=== PATIENT | male | born 1950 | race Caucasian/White ===

== ENCOUNTER 2023-04-03 18:40 | Observation (INO) | payer OTHER, BC ==
[2023-04-03] MEDS ORDERED: LORAZEPAM 1 MG TABLET ONE (19:41)
[2023-04-03] MEDS ORDERED: ASPIRIN 325 MG TAB ONE (19:41)
[2023-04-03 19:46] LABS: Absolute Lymphocytes (CBC) 1.2 K/uL (0.7-4.9); Hematocrit 46.9 % (39.6-49.0); Lymphocytes % 11.3 % (15.3-44.8); MCV 96.6 fL (80-100); MPV 9.8 fL (7.6-11.3); Platelets 170 thou/uL (152-406); RBC Red Blood Cell Count 4.85 M/uL (4.33-5.43)
--- NOTE | 2023-04-03 19:55 | RAD REPORT ---
EXAM DESCRIPTION: Dar Single View04/03/2023 7:31 pm CLINICAL HISTORY: CHEST PAIN COMPARISON: No comparisons TECHNIQUE: Portable AP view of the chest. FINDINGS: Right lung is clear. Retrocardiac airspace opacity, may relate to atelectasis or early pne umonia. No pneumothorax or effusion. The cardiomediastinal contours are unremarkable. IMPRESSION: Retrocardiac airspace opacification, may relate to atelectasis or pneumonia.
[2023-04-03 20:11] LABS: Albumin 4.2 g/dL (3.4-5.0); Bilirubin Direct 0.4 mg/dL (0-0.2); Bilirubin Indirect, Calculated 2.5 mg/dL (0.2-0.8); Bilirubin Total 2.9 mg/dL (0.2-1.0); Magnesium 2.5 mg/dL (1.6-2.4); Potassium 4.4 mEq/L (3.5-5.1); Protein, Total 8.1 g/dL (6.4-8.2); Troponin High Sensitivity 7.6 pg/mL (<58.9)
--- NOTE | 2023-04-03 21:02 | EDPHYS ---
Physician Documentation [facility] Name: Migue Jacob Age: 72 yrs Sex: Male : 1950 Arrival Date: 04/03/2023 Time: 18:40 Bed 15 Private MD: ED Physician Dario Lovell HPI: 04/03 19:55 This 72 yrs old Male presents to ER via Ambulatory with complaints of Chest Pain. rt 19:55 Patient presents to the ED with intermittent chest pain, shortness of breath starting rt yesterday. It is not exertional. Patient has no chest pain currently. He states that his anxiety has worsened. He denies other acute complaints at this time, symptoms are moderate severity, no other aggravating alleviating factors.. Historical: - Allergies: 18:45 No Known Allergies; ap3 - PMHx: 18:45 Hypertensive disorder; Parkinson's disease; ap3 - Immunization history:: Client reports having NOT received the Covid vaccine. - Social history:: Smoking status: Patient denies any tobacco usage or history of. - Family history:: not pertinent. ROS: 19:55 Constitutional: Negative for fever, chills, and weight loss, Abdomen/GI: Negative for rt abdominal pain, nausea, vomiting, diarrhea, and constipation, MS/Extremity: Negative for injury and deformity, Skin: Negative for injury, rash, and discoloration, Neuro: Negative for headache, weakness, numbness, tingling, and seizure, 19:55 Cardiovascular: Positive for chest pain, Negative for edema, 19:55 Respiratory: Positive for shortness of breath, Negative for cough, 19:55 Psych: Positive for anxiety, Negative for depression, Exam: 19:55 Constitutional: This is a well developed, well nourished patient who is awake, alert, rt and in no acute distress. Head/Face: Normocephalic, atraumatic. Chest/axilla: Normal chest wall appearance and motion. Nontender with no deformity. No lesions are appreciated. Cardiovascular: Regular rate and rhythm with a normal S1 and S2. No gallops, murmurs, or rubs. Normal PMI, no JVD. No pulse deficits. Respiratory: Lungs have equal breath sounds bilaterally, clear to auscultation and percussion. No rales, rhonchi or wheezes noted. No increased work of breathing, no retractions or nasal flaring. Abdomen/GI: Soft, non-tender, with normal bowel sounds. No distension or tympany. No guarding or rebound. No evidence of tenderness throughout. Skin: Warm, dry with normal turgor. Normal color with no rashes, no lesions, and no evidence of cellulitis. MS/ Extremity: Pulses equal, no cyanosis. Neurovascular intact. Full, normal range of motion. Neuro: Awake and alert, GCS 15, oriented to person, place, time, and situation. Cranial nerves II-XII grossly intact. Motor strength 5/5 in all extremities. Sensory grossly intact. Cerebellar exam normal. Normal gait. 19:55 ECG was reviewed by the Attending Physician. Vital Signs: 18:44 BP 148 / 69; Pulse 62; Resp 17; Temp 97.6; Pulse Ox 97% ; Weight 86.18 kg; Height 5 ft. ap3 8 in. ; Pain 7/10; 20:21 BP 137 / 78; Pulse 70; Resp 18; Pulse Ox 97% ; Pain 10/10; la4 18:44 Body Mass Index 28.89 (86.18 kg, 172.72 cm) ap3 18:44 Pain Scale: Adult ap3 20:21 Pain Scale: Adult la4 20:21 states that his whole body achees because he needs sleep. la4 [place] Coma Score: 20:21 Eye Response: spontaneous(4). Motor Response: obeys commands(6). Verbal Response: la4 oriented(5). Total: 15. MDM: 18:56 Patient medically screened. rt 20:12 Data reviewed: vital signs. ED course: Patient arrives today due to concern for chest ec2 pain, signout to me by previous physician. Lab work is remarkable for reassuring metabolic profile with renal dysfunction noted, troponin is within normal ranges, BNP is minimally elevated, CBC is reassuring and chest x-ray shows no acute intrathoracic process. Does comment on possible retrocardiac airspace opacification, patient without any respiratory symptoms, low suspicion for pneumonia.. 21:00 ED course: Ultimately patient is a medium risk chest pain also complaining of symptoms, ec2 will admit for continued cardiac evaluation. Discussed case with hospitalist, pending admission.. 04/03 18:54 Order name: Basic Metabolic Panel; Complete Time: 20:12 rt 04/03 18:54 Order name: CBC with Diff; Complete Time: 19:54 rt 04/03 18:54 Order name: LFT's; Complete Time: 20:12 rt 04/03 18:54 Order name: Magnesium; Complete Time: 20:12 rt 04/03 18:54 Order name: NT PRO-BNP; Complete Time: 20:12 rt 04/03 18:54 Order name: Troponin HS; Complete Time: 20:12 rt 04/03 21:24 Order name: Urinalysis w/ reflexes EDMS 04/03 21:24 Order name: Troponin High Sensitivity EDMS 04/03 21:24 Order name: Troponin High Sensitivity EDMS 04/03 21:24 Order name: Troponin High Sensitivity EDMS 04/03 21:24 Order name: Troponin High Sensitivity EDMS 04/03 18:54 Order name: XRAY Chest (1 view); Complete Time: 19:57 rt 04/03 18:54 Order name: EKG; Complete Time: 18:55 rt 04/03 18:54 Order name: EKG - Nurse/Tech; Complete Time: 18:56 rt 04/03 18:54 Order name: IV Saline Lock; Complete Time: 19:40 rt 04/03 18:54 Order name: Labs collected and sent; Complete Time: 19:50 rt 04/03 18:54 Order name: O2 Per Protocol; Complete Time: 19:50 rt 04/03 18:54 Order name: O2 Sat Monitoring; Complete Time: 19:50 rt EC:55 Rate is 58 beats/min. Rhythm is regular, Sinus bradycardia with No ectopy. QRS [place] is rt Normal. [place] interval is normal. QRS interval is normal. QT interval is normal. No Q waves. T waves are Normal. No ST changes noted. Interpreted by me. Administered Medications: 19:43 Drug: LORazepam PO 1 mg PO once Route: PO; rv 21:42 Follow up: Response: No adverse reaction; No change in condition la4 19:43 Drug: Aspirin PO 325 mg PO once Route: PO; rv 21:42 Follow up: Response: No adverse reaction; No change in condition la4 Disposition Summary: 04/03/23 21:01 Hospitalization Ordered Notes: Hospitalization Status: Inpatient Admission ec2 Provider: Fab Espinoza ec2 Location: Telemetry/MedSurg (Inpatient) ec2 Condition: Stable ec2 Problem: new ec2 Symptoms: are unchanged ec2 Bed/Room Type: Standard ec2 Room Assignment: 207(04/03/23 21:31) [id number] Diagnosis - Chest pain, unspecified ec2 Forms: - Medication Reconciliation Form ec2 - SBAR form ec2 - Leadership Thank You Letter ec2 Signatures: Dispatcher [employer] Phuong Holt RN RN ap3 Gerardo Montes RN RN rv [place], Ryan, MD MD rt Corral, Edwin, MD MD [facility] [place] [id number] Jocelynn Prieto RN la4 Corrections: (The following items were deleted from the chart) 21:31 21:01 ec2 [id number]
--- NOTE | 2023-04-03 21:02 | ER ---
Nurse's Notes [facility] Name: Migue Jacob Age: 72 yrs Sex: Male : 1950 Arrival Date: 04/03/2023 Time: 18:40 Bed 15 Private MD: Diagnosis: Chest pain, unspecified Presentation: 04/03 18:44 Chief complaint: Patient states: he has been having chest pain, shortness of breath, ap3 anxiety and moving slower than normal since yesterday 04/02/2023. Coronavirus screen: At this time, the client does not indicate any symptoms associated with coronavirus-19. Ebola Screen: No symptoms or risks identified at this time. Initial Sepsis Screen: Does the patient meet any 2 criteria? No. Patient's initial sepsis screen is negative. Does the patient have a suspected source of infection? No. Patient's initial sepsis screen is negative. Risk Assessment: Do you want to hurt yourself or someone else? Patient reports no desire to harm self or others. Onset of symptoms was April 02, 2023. 18:44 Method Of Arrival: Ambulatory ap3 18:44 Acuity: [place] 2 ap3 Triage Assessment: 18:47 General: Appears in no apparent distress. Behavior is calm. Pain: Complains of pain in ap3 chest Pain currently is 7 out of 10 on a pain scale. Pain began gradually, 1 day ago. Neuro: Level of Consciousness is awake, alert, obeys commands, Oriented to person, place, time, situation. Cardiovascular: Reports chest pain, shortness of breath, Patient's skin is warm and dry. Respiratory: Airway is patent Respiratory effort is even, unlabored, Respiratory pattern is regular, symmetrical. Historical: - Allergies: 18:45 No Known Allergies; ap3 - PMHx: 18:45 Hypertensive disorder; Parkinson's disease; ap3 - Immunization history:: Client reports having NOT received the Covid vaccine. - Social history:: Smoking status: Patient denies any tobacco usage or history of. - Family history:: not pertinent. Screenin:47 Abuse screen: Denies threats or abuse. Nutritional screening: No deficits noted. ap3 Tuberculosis screening: No symptoms or risk factors identified. 20:21 [facility] ED Fall Risk Assessment (Adult) History of falling in the last 3 months, la4 including since admission No falls in past 3 months (0 pts) Confusion or Disorientation No (0 pts) Intoxicated or Sedated No (0 pts) Impaired Gait Yes (1 pt) Mobility Assist Device Used Yes (1 pt) Altered Elimination No (0 pt) Score/Fall Risk Level 0 - 2 = Low Risk Oriented to surroundings, Maintained a safe environment, Educated pt \T\ family on fall prevention, incl call for assistance when getting out of bed, Provided non-skid footwear, Hourly rounding (assess needs \T\ fall precautionary measures) done, Used ambulatory aids as needed (educated on \T\ assisted with). Assessment: 20:17 Reassessment: Pt noted in room. Pt reports that his anxiety is keeping him from la4 sleeping and that he has not slept in the past 3 days. Pt has HX of parkinsons and restless legs and keeps going from seated position to standing position. Dr. Lovell notified. Previously medicated with ativan 1mg po prior to my assumption of care. Neuro: No deficits noted. Shen Agitation-Sedation Scale (RASS): +1 Restless Level of Consciousness is awake, alert, obeys commands, Oriented to person, place, time, situation, Appropriate for age Data Sme are equal bilaterally Moves all extremities. Full function Gait is Speech is normal, Facial symmetry appears normal, Pupils are PERRLA, Intact. Neuro: Reports Restlessness. Cardiovascular: No deficits noted. Heart tones S1 S2 Capillary refill < 3 seconds is sluggish Patient's skin is warm and dry. Chest pain is denied. Respiratory: No deficits noted. Airway is patent Respiratory effort is even, unlabored, Respiratory pattern is regular, symmetrical. GI: No deficits noted. No signs and/or symptoms were reported involving the gastrointestinal system. : No deficits noted. No signs and/or symptoms were reported regarding the genitourinary system. Derm: No deficits noted. No signs and/or symptoms reported regarding the dermatologic system. 21:35 Reassessment: Attempted to call report at this time to floor. No nurse assigned, will la4 call back in 10 minutes. Family notified of room number. pt has taken all PM meds from home to include carbidopa 25-100mg \T\ tabs, atorvastatin. pramipexole, trazodone 50mg taken. Vital Signs: 18:44 BP 148 / 69; Pulse 62; Resp 17; Temp 97.6; Pulse Ox 97% ; Weight 86.18 kg; Height 5 ft. ap3 8 in. ; Pain 7/10; 20:21 BP 137 / 78; Pulse 70; Resp 18; Pulse Ox 97% ; Pain 10/10; la4 18:44 Body Mass Index 28.89 (86.18 kg, 172.72 cm) ap3 18:44 Pain Scale: Adult ap3 20:21 Pain Scale: Adult la4 20:21 states that his whole body achees because he needs sleep. la4 [place] Coma Score: 20:21 Eye Response: spontaneous(4). Motor Response: obeys commands(6). Verbal Response: la4 oriented(5). Total: 15. ED Course: 18:44 Patient arrived in ED. ap3 18:45 Triage completed. ap3 18:47 Arm band placed on right wrist. ap3 18:49 Mak Oropeza MD is Attending Physician. rt 18:56 EKG done, by ED staff, reviewed by Mak Oropeza MD. ap3 19:33 XRAY Chest (1 view) In Process Unspecified. EDMS 19:39 Inserted saline lock: 20 gauge in right antecubital area, using aseptic technique. rv Blood collected. 20:02 Jocelynn Prieto, RN is Primary Nurse. la4 20:07 Attending Physician role handed off by Mak Oropeza MD ec2 20:07 Dario Lovell MD is Attending Physician. ec2 20:21 Patient has correct armband on for positive identification. Bed in low position. Call la4 light in reach. Adult w/ patient. Provided Education on: Plan of care. 20:21 No provider procedures requiring assistance completed. la4 21:00 Fab Espinoza MD is Hospitalizing Provider. ec2 21:42 Patient admitted, IV remains in place. la4 Administered Medications: 19:43 Drug: LORazepam PO 1 mg PO once Route: PO; rv 21:42 Follow up: Response: No adverse reaction; No change in condition la4 19:43 Drug: Aspirin PO 325 mg PO once Route: PO; rv 21:42 Follow up: Response: No adverse reaction; No change in condition la4 Medication: 20:21 VIS not applicable for this client. la4 Outcome: 21:01 Decision to Hospitalize by Provider. ec2 21:40 Admitted to Med/surg via stretcher, room 207, Report called to Mary Kay ramirez 21:40 Condition: stable 21:40 Instructed on the need for admit, Demonstrated understanding of instructions, room number 22:02 Patient left the ED. ashley Signatures: Dispatcher [employer] EDPhuong Fajardo RN RN ap3 Gerardo Montes RN CADEN rv Mak Oropeza MD MD rt Daroi Lovell MD MD ec2 Jocelynn Prieto, RN RN la4
[2023-04-03] MEDS ORDERED: ACETAMINOPHEN 325 MG TABLET PO PRN (21:20)
[2023-04-03] MEDS ORDERED: ALPRAZOLAM 0.25 MG TABLET PO PRN (21:20)
[2023-04-03] MEDS ORDERED: ONDANSETRON 4 MG/2 ML VIAL IV PRN (21:20)
--- NOTE | 2023-04-03 21:25 | P.HP ---
Certification for Inpatient Patient admitted to: Observation With expected LOS: <2 Midnights Practitioner: I am a practitioner with admitting privileges, knowledge of patient current condition, hospital course, and medical plan of care. Services: Services provided to patient in accordance with Admission requirements found in Title 42 Section 412.3 of the Code of Federal Regulations Patient History Date of Service: 04/04/23 Reason for admission: Chest pain. History of Present Illness: 72-year-old male patient with medical history significant for hyperlipidemia, Parkinson's disease and issues with anxiety was evaluated for episode of chest discomfort. Patient presented to the ED with chest discomfort and reported a lot of anxiety episode. As per family and friend at bedside patient has had significant mood swings and because of concerns was brought to the ED. In the ED initial lab revealed no acute abnormality and EKG was not concerning. Because of his presentation and other comorbidities she was admitted for chest pain workup. He denied overt episode of fever, chills, cough, nausea, vomiting. Allergies Unable to Assess Allergy (Unverified 04/03/23 21:44) Home Medications: 5-Hydroxytryptophan (5-Htp) [5-Htp] 100 mg PO DAILY 04/04/23 Atorvastatin Calcium [Lipitor*] 10 mg PO BEDTIME 04/04/23 Carbidopa/Levodopa 25-100 [Sinemet 25-100*] 2 tab PO TID 04/04/23 Escitalopram Oxalate 10 mg PO DAILY 04/04/23 [place] [facility]-3 Fatty Acids [[place]-3] 1 cap PO DAILY 04/04/23 Pramipexole Di-HCl [Pramipexole Dihydrochloride] 1.5 mg PO BEDTIME 04/04/23 Trazodone [Desyrel*] 0.5 tab PO BEDTIME PRN 04/04/23 - Family History Father -: Heart disease uncle Notes: PAD Review of Systems General: Unremarkable Eyes: Unremarkable ENT: Unremarkable Respiratory: Unremarkable Cardiovascular: Chest Pain Gastrointestinal: Unremarkable Genitourinary: Unremarkable Musculoskeletal: Unremarkable Integumentary: Unremarkable Neurological: Unremarkable Lymphatics: Unremarkable Physical Examination - Physical Exam General: Alert, Oriented x3 HEENT: Atraumatic Neck: Supple Respiratory: Normal air movement Cardiovascular: Regular rate/rhythm, Normal S1 S2 Gastrointestinal: Soft and benign Musculoskeletal: No swelling Neurological: Normal speech, Normal strength at 5/5 x4 extr - Studies Laboratory Data (last 24 hrs) 04/03/23 04/03/23 19:39 19:39 WBC 10.20 Hgb 15.7 Hct 46.9 Plt Count 170 Sodium 138 Potassium 4.4 BUN 25 H Creatinine 1.33 H Glucose 93 Magnesium 2.5 H Total Bilirubin 2.9 H AST 40 H ALT 14 L Alkaline Phosphatase 88 Assessment and Plan - Plan Chest pain: Presentation is concerning for suspicion for ACS. Initial troponin trend is negative. Will continue on telemetry and monitor clinical symptomatology. Continue statin and aspirin therapy. Will obtain echocardiogram to assess cardiac function. Cardiology to evaluate if needed. Anxiety disorder: Patient has had recurrent issues with mood swings and panic attacks. Will have patient on as needed lorazepam for symptomatic management of anxiety. Will follow clinical symptomatology closely. Parkinson's disease: Continue outpatient prescribed medications for management Hyperlipidemia: We will continue statin therapy. Prophylaxis: Lovenox for DVT prophylaxis CODE STATUS: Full code Disposition: We will treat patient's anxiety, rule out ACS and discharge him once he is deemed clinically stable. - Advance Directives Does patient have a Living Will: No Does patient have a Durable POA for Healthcare: No
[2023-04-03 22:35] VITALS: BMI 30.9
[2023-04-04 01:13] VITALS: O2SAT 97
[2023-04-04] MEDS ORDERED: ENOXAPARIN 40 MG/0.4 ML SQ SCH (09:00)
[2023-04-04] MEDS ORDERED: ASPIRIN 81 MG CHEWABLE TABLET PO SCH (09:00)
[2023-04-04 09:43] LABS: Urine Bacteria None Seen /HPF (<20); Urine Bilirubin NEGATIVE (Negative); Urine Blood Negative (Negative); Urine Clarity Clear (Clear); Urine Color Yellow (Yellow); Urine Glucose NEGATIVE (Negative); Urine Mucus 1+ /HPF (None Seen); Urine Protein TRACE (Negative); Urine RBC <5 /HPF (None Seen); Urine Urobilinogen Normal (Normal); Urine pH 5.5 (5.0-7.0)
[2023-04-04] MEDS ORDERED: TRAZODONE 50 MG TABLET PO PRN (13:10)
[2023-04-04 13:16] VITALS: BP 133/94; TEMP 97.4
[2023-04-04] MEDS ORDERED: CARBIDOPA/LEVODOPA 25/100 TAB PO SCH (14:00)
--- NOTE | 2023-04-04 19:27 | CON ---
Reason For Consultation: Consultation called because of the possibility of Parkinson's medications c ontributing to anxiety. History Of Present Illness: Mr. Jacob is a 72-year-old patient with hypertension, Parkinson's disea se, who came to [facility] with chest pain. A friend was at bedside and the patient reporte d that he has been very worried, stressed, and anxious because of a very contentious divorce and has been in lot of issues regarding that. Reportedly, he did have anxiety episodes and would have mood s wings as a result. There was no mention of focal neurological deficits such as face, arm, or leg num bness or weakness. His evaluation included his chest x-ray and blood work. Blood work for complete blood count with differential essentially unremarkable. His liver function study was somewhat elevat ed, total bilirubin, direct bilirubin, indirect bilirubin, all elevated. The AST was slightly elevat ed at 40, but the ALT was low at 88, normal alkaline phosphatases. His cardiac enzymes were unremark able. Urinalysis unremarkable. In terms of Parkinson's disease, he takes carbidopa/levodopa 25/100 two tablets 3 times daily along w ith the agonist, Mirapex 1.5 mg at bedtime. He is on Lexapro for depression and Lipitor along with a spirin for stroke risk reduction. Past Medical History: As noted above, which is the Parkinson's disease, depression, anxiety, dyslipi demia. Allergies: NO KNOWN DRUG ALLERGIES. Family History: Heart disease in father, peripheral artery disease in uncle. Social History: No alcohol, tobacco, or IV drug use. Review of Systems: Denies any recent fevers, chills, nausea, vomiting, myalgias, arthralgias, rash, headache, weight lauren nge. No active psychiatric issues, although the patient does have the depression as noted. Physical Examination: Vital Signs: Blood pressure 133/94, pulse 52, respiratory rate 18, temperature 97.4, oxygen saturati on 96%. Weight 203 pounds, height 5 feet 8 inches, BMI 30.9. General: Mr. Jacob is resting in bed. He is in no acute distress at this point. He is normocephal ic, atraumatic. Sclerae anicteric. Oropharynx pink, moist. Neck: Supple. Chest: Clear. Heart: Regular. Extremities: Show no significant cyanosis or edema. Neurological: He is alert and oriented to situation, place, person. He has no obvious resting tremo r. Very subtle increased tone in the upper and lower extremities. He has 5/5 strength proximally an d distally in upper and lower extremities. Sensory exam is intact. Coordination intact. Gait has g ood stance and stride length with mild decreased or festination in his gait. Assessment: Mr. Jacob is a 72-year-old patient with Parkinson's disease, depression, anxiety, dysli pidemia, who has been very worried and stressed and anxious and reportedly very emotional. His diffe rential diagnosis may include pseudobulbar affect, which can be associated with Parkinson's disease. It is unlikely that the carbidopa/levodopa and Mirapex are contributing significantly to these sympt oms. Plan: 1.He may continue his current regimen of carbidopa/levodopa and Mirapex. 2.May consider Nuedexta for pseudobulbar affect. 3.Discharged and follow up with Dr. Aguirre within the month. He may follow up with a psychiatrist to help manage his anxiety and depression. LB/MODL Voice ID: [id number] Report ID: [id number]
[2023-04-04] MEDS ORDERED: ATORVASTATIN 10 MG TAB PO SCH (21:00)
[2023-04-04] MEDS ORDERED: PRAMIPEXOLE 1 MG TAB PO SCH (21:00)
--- NOTE | 2023-04-05 06:35 | ECHO ---
HEIGHT: 5 ft 8 in WEIGHT: 203 lb 6.4 oz DATE OF STUDY: 04/04/[address]: Fab Espinoza MD 2-DIMENSIONAL: YES M.MODE: YES DOPPLER: YES COLOR FLOW: YES TDS: PORTABLE: YES DEFINITY: BUBBLE STUDY: DIAGNOSIS: PATIENT WITH RECURRENT CHEST PAIN CARDIAC HISTORY: CATHERIZATION: NO SURGERY: NO PROSTHETIC VALVE: NO PACEMAKER: NO MEASUREMENTS (cm) DIASTOLIC (NORMALS) SYSTOLIC (NORMALS) IVSd 1.2 (0.6-1.2) LA Diam 2.7 (1.9-4.0) LVEF 70% LVIDd 3.7 (3.5-5.7) LVIDs 2.3 (2.0-3.5) %FS 39% LVPWd 1.3 (0.6-1.2) Ao Diam 2.8 (2.0-3.7) 2 DIMENSIONAL ASSESSMENT: RIGHT ATRIUM: NORMAL LEFT ATRIUM: NORMAL RIGHT VENTRICLE: NORMAL LEFT VENTRICLE: NORMAL TRICUSPID VALVE: MILD TRICUSPID REGURGITATION MITRAL VALVE: MILD MITRAL REGURGITATION PULMONIC VALVE: MODERATE PULMONARY INSUFFICIENCY AORTIC VALVE: NORMAL PERICARDIAL EFFUSION: NONE AORTIC ROOT: NORMAL LEFT VENTRICULAR WALL MOTION: NORMAL DOPPLER/COLOR FLOW: SEE BELOW COMMENTS: 1. NORMAL LEFT VENTRICULAR EJECTION FRACTION GREATER THAN 60% 2. NORMAL WALL MOTION 3. MILD MITRAL REGURGITATION AND TRICUSPID REGURGIATION 4. MODERATE TO SEVERE PULMONARY INSUFFICIENCY TECHNOLOGIST: RAISSA YU
[2023-04-05] MEDS ORDERED: HYDROXYTRYPTOPHAN 100 MG PO SCH (09:00)
[2023-04-05] MEDS ORDERED: ESCITALOPRAM 20 MG TAB PO SCH (09:00)
[2023-04-05] MEDS ORDERED: DOCOSAHEXANOIC AC/EPA 1000 MG PO SCH (09:00)
== END 2023-04-04 16:04 | disposition home health service (06) ==
LOC: ER 18:40 → ERHOLD 21:20 → 2ND 21:59
PROVIDERS: ADMIT Internal Medicine Nephrology; ATTEND Hospitalist
DX: R07.9 Chest pain, unspecified (principal); E78.5 Hyperlipidemia, unspecified; G20.A1 Parkinson's disease without dyskinesia, without mention of fluctuations; F41.9 Anxiety disorder, unspecified; F32.A Depression, unspecified
CPT/HCPCS: 93005; 93306; 85025; 81001; 80048; 36415; 83735; 80076; 84484 ×4; 83880; 71045; J1650; G0378

== ENCOUNTER 2024-02-05 14:26 | Inpatient (IN) | payer OTHER, BC ==
[2024-02-05] MEDS ORDERED: NA CHLORIDE 0.9% 250 ML ONE (15:04)
[2024-02-05] MEDS ORDERED: ACETAMINOPHEN 325 MG TABLET ONE (15:04)
[2024-02-05] MEDS ORDERED: VANCOMYCIN 1 GM/VIAL ONE (15:04)
[2024-02-05] MEDS ORDERED: NA CHLORIDE 0.9% 3,000 ML ONE (15:04)
[2024-02-05] MEDS ORDERED: CEFEPIME 1 GM/VIAL ONE (15:05)
[2024-02-05] MEDS ORDERED: NA CHLORIDE 0.9% 100 ML ONE (15:05)
[2024-02-05 15:06] LABS: Absolute Basophils 0.1 K/uL (0-0.5); Absolute Lymphocytes (CBC) 0.4 K/uL (0.7-4.9); Absolute Neutrophil 21.9 K/uL (1.8-8.0); Basophils % 0.3 % (0-1.3); Hematocrit 36.3 % (39.6-49.0); Hemoglobin 11.7 g/dL (13.6-17.9); Lymphocytes % 1.9 % (15.3-44.8); MCH 29.3 pg (27.0-35.0); MCHC 32.1 g/dL (32.0-36.0); MCV 91.1 fL (80-100); MPV 9.5 fL (7.6-11.3); Monocytes % 4.4 % (3.3-12.3); Neutrophils % 93.4 % (41.7-73.7); Platelets 234 thou/uL (152-406); RBC Red Blood Cell Count 3.99 M/uL (4.33-5.43); Red Cell Distribution Width 15.3 % (12.1-15.2)
[2024-02-05 15:14] LABS: PT Prothrombin Time 19.1 SECONDS (9.4-12.5); PTT, Activated Partial Thromb 37.1 SECONDS (24.3-36.9); Protime INR 1.73
[2024-02-05 15:24] LABS: ALT/SGPT < 14 U/L (16-61); AST/SGOT 35 U/L (15-37); Albumin 3.8 g/dL (3.4-5.0); Albumin/Globulin Ratio 0.9 (1.1-1.8); Alkaline Phosphatase 76 U/L (45-117); Anion Gap 11.3 mEq/L (5.0-15.0); BUN Blood Urea Nitrogen 25 mg/dL (7-18); Bicarbonate 26 mEq/L (21-32); Bilirubin Total 2.7 mg/dL (0.2-1.0); Creatine Phosphokinase 872 U/L (39-308); Globulin 4.2 g/dL (2.3-3.5); Glomerular Filtration Rate 51 ml/min (=/>90); Glucose Level 158 mg/dL (74-106); Potassium 4.3 mEq/L (3.5-5.1); Sodium Level 138 mEq/L (136-145)
--- NOTE | 2024-02-05 16:22 | RAD REPORT ---
EXAM: CT brain without contrast HISTORY: GLF, AMS COMPARISON: None TECHNIQUE: Multiple contiguous axial images were obtained and a CT of the brain without contrast. Sag ittal and coronal reformats were performed. FINDINGS: No evidence of hydrocephalus, intracranial hemorrhage, or extra-axial fluid collection. The brain is normal in morphology. The calvarium is intact. The visualized paranasal sinuses and mastoid air cells are essentially clear . IMPRESSION: No evidence of acute intracranial abnormality. EXAM: CT of the cervical spine without contrast HISTORY: GLF, AMS COMPARISON: None TECHNIQUE: Multiple contiguous axial images were obtained in a CT of the cervical spine without contr ast. Sagittal and coronal reformats were performed. FINDINGS: The vertebral bodies demonstrate normal height and alignment. No evidence of acute fracture or subluxation.. No degenerative changes are present. No prevertebral soft tissue swelling is seen. The posterior facets are well aligned. Normal alignment of the skull base with the cervical spine is seen. The lung apices are unremarkable. IMPRESSION: No evidence of acute osseous abnormality of the cervical spine.
--- NOTE | 2024-02-05 16:26 | RAD REPORT ---
EXAMINATION: ONE VIEW CHEST XR CLINICAL INDICATION: Male, 73 years old.,COUGH TECHNIQUE: Frontal chest projection is submitted. Examination is limited by patient positioning and t echnique. COMPARISON: 04/03/2023 FINDINGS: The lungs are somewhat hypoinflated which limits evaluation. Elevation of the left hemidiaphragm, wit h gas-filled stomach fundus noted. Blunting of the costophrenic angle with retrocardiac opacification, mildly progressed, may relate to progressive small effusion, atelectasis, and/or pneum onia. No pneumothorax or other sizable effusion. The heart is normal in size. Mediastinal contours are unremarkable. IMPRESSION: Concern for left-sided effusion with atelectasis and/or pneumonia.
--- NOTE | 2024-02-05 16:30 | EDPHYS ---
Physician Documentation [facility] Name: Migue Jacob Jr Age: 73 yrs Sex: Male : 1950 Arrival Date: 02/05/2024 Time: 14:26 Bed 25 Private MD: ED Physician Dario Lovell HPI: 02/04 14:32 This 73 yrs old Male presents to ER via Unassigned with complaints of RLE ec2 swelling and redness. 14:33 Patient arrives today for evaluation of right lower extremity redness. Patient ec2 reportedly was found down by son earlier today, unclear if he had fallen or what transpired. Patient has baseline disoriented however unclear what exactly his baseline mental status is. EMS reports that they noted him to be borderline febrile with a temperature 100.1 F. Patient is an unreliable historian unable to provide significant history.. Historical: - Allergies: 14:37 No Known Allergies; me1 - PMHx: 14:37 Deep vein thrombosis; Parkinson's disease; Hypertensive disorder; me1 - Immunization history:: Adult Immunizations unknown. - Infectious Disease History:: Denies. - Social history:: Smoking status: unknown. ROS: 14:33 Constitutional: as per hpi ec2 Exam: 14:33 Constitutional: GEN: NAD Head: atraumatic Eyes: EOMI Ears: External ears are ec2 normal. CV: regular rate LUNGS: no respiratory distress ABD: non-distended SKIN: Right lower extremity with erythema and warmth and discharge present. MSK: no evidence of trauma Vital Signs: 14:33 BP 156 / 53; Pulse 93; Resp 20; Temp 100.1; Pulse Ox 95% ; Weight 90.72 kg; Height 5 me1 ft. 8 in. ; Pain 0/10; 15:00 BP 137 / 57; Pulse 86; Resp 18; Pulse Ox 97% ; me1 16:00 BP 115 / 69; Pulse 77; Resp 18; Pulse Ox 96% ; me1 16:30 Temp 98.7(O); me1 16:31 BP 117 / 59; ec2 17:00 BP 109 / 69; Pulse 78; Resp 21; Pulse Ox 97% ; me1 18:00 BP 122 / 72; Pulse 75; Resp 22; Temp 98.9; Pulse Ox 99% ; me1 19:00 BP 111 / 70; Pulse 74; Resp 19; Pulse Ox 100% ; me1 14:33 Body Mass Index 30.41 (90.72 kg, 172.72 cm) me1 14:33 Pain Scale: Adult me1 MDM: 14:30 Medical Screening Exam initiated ec2 14:33 Data reviewed: vital signs, nurses notes. ED course: Patient arrives today for right ec2 lower extremity redness and swelling along with possible altered mental status. Will obtain a septic workup, empirically treat with vancomycin and cefepime. Differential includes cellulitis, electrolyte disturbances, intracranial brain bleed, sepsis.. 15:40 ED course: CBC with marked leukocytosis of 23.5. Metabolic profile with renal ec2 dysfunction with a creatinine of 1.47 and GFR 51. Lactic acid elevated at 3.4. CPK minimally elevated at 872. Patient pending crystalloid infusion.. 15:43 ED course: The reassessment of sepsis has been completed. ec2 16:28 ED course: CT scan of the head and C-spine without acute traumatic process. Will admit ec2 for sepsis secondary to cellulitis. Discussed with hospitalist, pending admission.. 17:03 ED course: EKG independently reviewed and interpreted by me, shows normal sinus rhythm, ec2 rate of 82, no acute ST segment elevations, intervals are nonconcerning.. 02/04 14:31 Order name: Blood Culture Adult (2) ec2 02/04 14:31 Order name: CBC with Diff ec2 02/04 14:31 Order name: CMP; Complete Time: 15:40 ec2 02/04 14:31 Order name: Lactate w/ 2H reflex if indic.; Complete Time: 15:40 ec2 02/04 14:31 Order name: Protime (+inr); Complete Time: 15:40 ec2 02/04 14:31 Order name: Ptt, Activated; Complete Time: 15:40 ec2 02/04 14:32 Order name: CK; Complete Time: 15:40 ec2 02/04 17:20 Order name: CBC with Automated Diff EDMS 02/04 17:20 Order name: CBC with Automated Diff EDMS 02/04 17:20 Order name: Comprehensive Metabolic Panel EDMS 02/04 17:20 Order name: Comprehensive Metabolic Panel EDMS 02/04 17:20 Order name: Troponin High Sensitivity EDMS 02/04 17:20 Order name: Troponin High Sensitivity [facility] 02/04 17:20 Order name: Troponin High Sensitivity [facility] 02/04 17:20 Order name: Troponin High Sensitivity [facility] 02/04 17:29 Order name: Ghost Lactate-NO COLLECT Timer; Complete Time: 19:25 [facility] 02/04 19:10 Order name: Lactate Sepsis 2 HR Follow-up; Complete Time: 19:25 EDCT 02/04 14:31 Order name: Chest Single View XRAY; Complete Time: 16:28 ec2 02/04 14:32 Order name: CT Head C Spine; Complete Time: 16:28 ec2 02/04 14:31 Order name: EKG; Complete Time: 14:31 ec2 02/04 17:20 Order name: CONS Physician Consult [facility] 02/04 14:31 Order name: Accucheck 2 02/04 14:31 Order name: Cardiac monitoring [facility] 02/04 14:31 Order name: EKG - Nurse/Tech; Complete Time: 17:04 ec2 02/04 14:31 Order name: IV Saline Lock - Large Bore; Complete Time: 15:00 ec2 02/04 14:31 Order name: Labs collected and sent; Complete Time: 15:00 ec2 02/04 14:31 Order name: O2 Per Protocol; Complete Time: 15:00 ec2 02/04 14:31 Order name: O2 Sat Monitoring; Complete Time: 15:00 ec2 02/04 14:31 Order name: Vital Signs; Complete Time: 15:00 ec2 Administered Medications: 15:09 Not Given (able to swallow pillss): acetaminophensuppository 650 mg MN once ll1 15:09 Drug: Acetaminophen PO 1000 mg PO once Route: PO; ll1 16:17 Follow up: Response: No adverse reaction ll1 15:42 Drug: NS 0.9% IV (30 ml/kg) 30 ml/kg IV at bolus once; Sepsis Protocol; to be given as ll1 a bolus over 90 minutes Route: IV; Rate: bolus; Site: right antecubital; 18:01 Follow up: Response: No adverse reaction; IV Status: Completed infusion; IV Intake: ll1 2172ml 15:42 Drug: Cefepime IVPB 1 grams IVPB at 200 ml/hr once over 30 mins; (mix in NS 100 mL) ll1 Route: IVPB; Rate: 200 ml/hr; Infused Over: 30 mins; Site: right antecubital; 16:18 Follow up: Response: No adverse reaction; IV Status: Completed infusion; IV Intake: ll1 100ml 16:18 Drug: vancoMYCIN IVPB 1 grams IVPB once over 2 hrs Route: IVPB; Infused Over: 2 hrs; ll1 Site: right antecubital; 17:45 Follow up: Response: No adverse reaction; IV Status: Completed infusion; IV Intake: ll1 250ml 17:42 Not Given (dose given by family from home med supplyy): carbidopa-levodopaoral ll1 disintegrating tablet 25 mg-100 mg 2 tabs PO once Disposition Summary: 02/05/24 16:30 Hospitalization Ordered Notes: Hospitalization Status: Inpatient Admission ec2 Provider: Mary Madison ec2 [facility] ec2 Condition: Stable ec2 Problem: new ec2 Symptoms: have improved ec2 Bed/Room Type: Standard ec2 Room Assignment: 414(02/05/24 17:31) bd Diagnosis - Severe sepsis without septic shock ec2 - Cellulitis of left lower limb ec2 Forms: - Medication Reconciliation Form ec2 - SBAR form ec2 - Leadership Thank You Letter ec2 Critical care time excluding procedures: 16:29 Critical care time: Bedside Care: 30 minutes, Consultation: 5 minutes. Total time: 35 ec2 minutes Signatures: Dispatcher [employer] Khushbu Castaneda Lynsay, RN RN 1 Charisse Davies RN RN nv1 Dario Lovell MD MD ec2 Corrections: (The following items were deleted from the chart) 17:31 16:30 ec2 bd
--- NOTE | 2024-02-05 16:30 | ER ---
Nurse's Notes [facility] Name: Migue Jacob Jr Age: 73 yrs Sex: Male : 1950 Arrival Date: 02/05/2024 Time: 14:26 Bed 25 Private MD: Diagnosis: Severe sepsis without septic shock;Cellulitis of left lower limb Presentation: 02/04 14:33 Chief complaint: Patient states: toned out for patient on the ground, found on floor me1 next to bed by his son. A\T\ox2, Normally A\T\OX4. Patient is being treated for cellulitis to RLE. RLE is red, warm and swollen. Coronavirus screen: At this time, the client does not indicate any symptoms associated with coronavirus-19. Ebola Screen: No symptoms or risks identified at this time. 14:33 Method Of Arrival: EMS: [facility] mt1 14:33 Initial Sepsis Screen: Does the patient meet any 2 criteria? HR > 90 bpm. Risk me1 Assessment: Do you want to hurt yourself or someone else? Patient reports no desire to harm self or others. Onset of symptoms is unknown. 14:33 Acuity: [place] 3 me1 17:49 Initial Sepsis Screen: Does the patient have a suspected source of infection?. ll1 Triage Assessment: 14:37 General: Appears in no apparent distress. well groomed, well developed, well nourished, me1 Behavior is calm, cooperative, appropriate for age. Pain: Denies pain. EENT: No signs and/or symptoms were reported regarding the EENT system. Neuro: Level of Consciousness is awake, alert, obeys commands, Oriented to person, situation. Neuro: Oriented to Reports Son reports patient is A\T\Ox4 at baseline.. Cardiovascular: Patient's skin is warm and dry. Respiratory: Airway is patent Respiratory effort is even, unlabored, Respiratory pattern is regular, symmetrical. GI: No signs and/or symptoms were reported involving the gastrointestinal system. : No signs and/or symptoms were reported regarding the genitourinary system. Derm: Wound noted lateral aspect of right calf, right calf, medial aspect of right calf and right vale Wound is red, warm, edematous to RLE. 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 Musculoskeletal: Circulation, motion, and sensation intact. Swelling present in right vale. Historical: - Allergies: 14:37 No Known Allergies; me1 - PMHx: 14:37 Deep vein thrombosis; Parkinson's disease; Hypertensive disorder; me1 - Immunization history:: Adult Immunizations unknown. - Infectious Disease History:: Denies. - Social history:: Smoking status: unknown. Screenin:39 [facility] ED Fall Risk Assessment (Adult) History of falling in the last 3 months, me1 including since admission Yes- single mechanical fall (1 pt) Confusion or Disorientation Yes (5 pts) Intoxicated or Sedated No (0 pts) Impaired Gait Yes (1 pt) Mobility Assist Device Used Yes (1 pt) Altered Elimination No (0 pt) Score/Fall Risk Level 3 or more points = High Risk Maintained a safe environment, Hourly rounding (assess needs \T\ fall precautionary measures) done, Used ambulatory aids as needed (educated on \T\ assisted with). Abuse screen: Denies threats or abuse. Nutritional screening: No deficits noted. Tuberculosis screening: No symptoms or risk factors identified. Assessment: 14:39 General: See triage assessment. . me1 Vital Signs: 14:33 BP 156 / 53; Pulse 93; Resp 20; Temp 100.1; Pulse Ox 95% ; Weight 90.72 kg; Height 5 me1 ft. 8 in. ; Pain 0/10; 15:00 BP 137 / 57; Pulse 86; Resp 18; Pulse Ox 97% ; me1 16:00 BP 115 / 69; Pulse 77; Resp 18; Pulse Ox 96% ; me1 16:30 Temp 98.7(O); me1 16:31 BP 117 / 59; ec2 17:00 BP 109 / 69; Pulse 78; Resp 21; Pulse Ox 97% ; me1 18:00 BP 122 / 72; Pulse 75; Resp 22; Temp 98.9; Pulse Ox 99% ; me1 19:00 BP 111 / 70; Pulse 74; Resp 19; Pulse Ox 100% ; me1 14:33 Body Mass Index 30.41 (90.72 kg, 172.72 cm) me1 14:33 Pain Scale: Adult mt1 ED Course: 14:30 Patient arrived in ED. ec2 14:30 Dario Lovell MD is Attending Physician. ec2 14:33 Charisse Davies RN is Primary Nurse. me1 14:36 Triage completed. me1 14:37 Arm band placed on Patient placed in an exam room. me1 14:39 Patient has correct armband on for positive identification. Bed in low position. Call me1 light in reach. Side rails up X2. Provided Education on: POC. Verbalized understanding. . Client placed on continuous cardiac and pulse oximetry monitoring. NIBP monitoring applied. Pulse ox on. NIBP on. 14:39 No provider procedures requiring assistance completed. me1 14:55 Initial lab(s) drawn, by me, sent to lab. First set of blood cultures drawn by me. me1 14:59 Inserted saline lock: 20 gauge in right antecubital area, using aseptic technique. me1 15:00 Blood Culture Adult (2) Sent. 1 15:00 CBC with Diff Sent. ll1 15:00 CMP Sent. ll1 15:00 Protime (+inr) Sent. ll1 15:00 Ptt, Activated Sent. ll1 15:00 CK Sent. me1 15:07 Second set of blood cultures drawn by mt. me1 15:32 CT Head C Spine In Process Unspecified. EDMS 15:36 Chest Single View XRAY In Process Unspecified. EDMS 16:29 Mary Madison MD is Hospitalizing Provider. ec2 17:50 Patient admitted, IV remains in place. mt1 Administered Medications: 15:09 Not Given (able to swallow pillss): acetaminophensuppository 650 mg [place] once ll1 15:09 Drug: Acetaminophen PO 1000 mg PO once Route: PO; ll1 16:17 Follow up: Response: No adverse reaction ll1 15:42 Drug: NS 0.9% IV (30 ml/kg) 30 ml/kg IV at bolus once; Sepsis Protocol; to be given as ll1 a bolus over 90 minutes Route: IV; Rate: bolus; Site: right antecubital; 18:01 Follow up: Response: No adverse reaction; IV Status: Completed infusion; IV Intake: ll1 2172ml 15:42 Drug: Cefepime IVPB 1 grams IVPB at 200 ml/hr once over 30 mins; (mix in NS 100 mL) ll1 Route: IVPB; Rate: 200 ml/hr; Infused Over: 30 mins; Site: right antecubital; 16:18 Follow up: Response: No adverse reaction; IV Status: Completed infusion; IV Intake: ll1 100ml 16:18 Drug: vancoMYCIN IVPB 1 grams IVPB once over 2 hrs Route: IVPB; Infused Over: 2 hrs; ll1 Site: right antecubital; 17:45 Follow up: Response: No adverse reaction; IV Status: Completed infusion; IV Intake: ll1 250ml 17:42 Not Given (dose given by family from home med supplyy): carbidopa-levodopaoral ll1 disintegrating tablet 25 mg-100 mg 2 tabs PO once Medication: 14:39 VIS not applicable for this client. me1 Intake: 16:18 IV: 100ml; Total: 100ml. ll1 17:45 IV: 250ml; Total: 350ml. ll1 18:01 IV: 2172ml; Total: 2522ml. ll1 Outcome: 16:30 Decision to Hospitalize by Provider. ec2 17:50 Condition: stable ll1 17:50 Instructed on the need for admit, 17:50 Admitted to Tele accompanied by tech, via stretcher, room 414, with chart, Report me1 called to Ch[facility], receipt confirmed. 19:30 Patient left the ED. me1 Signatures: Dispatcher [employer] Ruby Holt RN RN 1 Charisse Davies RN RN me1 Dario Lovell MD MD ec2 Corrections: (The following items were deleted from the chart) 14:36 14:33 BP 156 / 53; Pulse 93bpm; Resp 20bpm; Pulse Ox 95%; Temp 100.1F; Pain 0/10, me1 Adult; me1 14:36 14:33 BP 156 / 53; Pulse 93bpm; Resp 20bpm; Pulse Ox 95%; Temp 100.1F; 90.72 kg; Pain me1 0/10, Adult; me1 18:03 15:00 BP 137 / 57; Pulse 86bpm; Resp 18bpm; Pulse Ox 97%; 1 me1 18:03 16:00 BP 115 / 69; Pulse 77bpm; Resp 18bpm; Pulse Ox 96%; 1 me1 18:03 17:00 BP 109 / 69; Pulse 78bpm; Resp 21bpm; Pulse Ox 97%; [place] [id number] 18:03 16:30 Temp 98.7F Oral; [facility] me1 18:04 14:59 Inserted saline lock: 20 gauge in right antecubital area, using aseptic [facility] technique. [facility] : 14:55 Initial lab(s) drawn, by mt, sent to lab. First set of blood cultures drawn by mtCarlos nava, [facility] : 15:00 CREATINE PHOSPHOKINASE+C.LAB.BRZ drawn and sent. [place] [id number] 18: 15:07 Second set of blood cultures drawn by mt, [place] [id number] : 17:50 Patient admitted, IV remains in place. [place] [id number] 18: 17:50 Admitted to Tele accompanied by adilson, via stretcher, room 414, with chart, Report [facility] called to [facility], receipt confirmed. [facility]
[2024-02-05] MEDS ORDERED: ONDANSETRON 4 MG/2 ML VIAL IV PRN (17:14)
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
[2024-02-05] MEDS: CARBIDOPA/LEVODOPA 25/250 TAB PO SCH (21:00)
[2024-02-05] MEDS: PRAMIPEXOLE 1 MG TAB PO SCH (21:00)
[2024-02-05] MEDS: APIXABAN 5 MG TABLET PO SCH (21:00)
[2024-02-05 21:08] LABS: Anisocytosis 1+; Blood Morphology Comment NOTED (NOT SEEN); Platelet Estimate ADEQ; Poikilocytosis 1+; White Blood Cell Scan OK (OK)
[2024-02-05 21:32] VITALS: BMI 31.4
[2024-02-05] MEDS: NA CHLORIDE 0.9% 1,000 ML IV SCH (21:49)
[2024-02-06] MEDS: ACETAMINOPHEN 500 MG TAB PO PRN (04:17)
[2024-02-06 07:18] LABS: Absolute Basophils 0.1 K/uL (0-0.5); Absolute Lymphocytes (CBC) 0.5 K/uL (0.7-4.9); Absolute Monocytes 0.6 K/uL (0.1-1.3); Absolute Neutrophil 12.6 K/uL (1.8-8.0); Basophils % 0.6 % (0-1.3); Eosinophils % 0.3 % (0-4.4); Hematocrit 33.5 % (39.6-49.0); Hemoglobin 10.4 g/dL (13.6-17.9); Lymphocytes % 3.8 % (15.3-44.8); MCH 28.6 pg (27.0-35.0); MCHC 31.2 g/dL (32.0-36.0); MCV 91.7 fL (80-100); MPV 10.4 fL (7.6-11.3); Monocytes % 4.5 % (3.3-12.3); Neutrophils % 90.8 % (41.7-73.7); Platelets 167 thou/uL (152-406); RBC Red Blood Cell Count 3.65 M/uL (4.33-5.43); Red Cell Distribution Width 15.7 % (12.1-15.2)
[2024-02-06 07:28] LABS: Albumin 2.6 g/dL (3.4-5.0); Albumin/Globulin Ratio 0.8 (1.1-1.8); Anion Gap 13.4 mEq/L (5.0-15.0); Bilirubin Total 2.6 mg/dL (0.2-1.0); Globulin 3.4 g/dL (2.3-3.5); Potassium 3.4 mEq/L (3.5-5.1)
[2024-02-06 07:42] LABS: Troponin High Sensitivity 61.9 pg/mL (<58.9)
[2024-02-06] MEDS: VANCOMYCIN 2 GM in NA CHLORIDE 0.9% 500 ML IVPB SCH (09:13)
[2024-02-06] MEDS: FLU (Fluarix Triv) TS24-25(6MOS UP)/PF 45 MCG/0.5 ML Syringe IM ONE (11:54)
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
[2024-02-06] MEDS: SILVER SULFADIAZINE 1% 50 GM TOP SCH (13:41)
[2024-02-06] MEDS: ALPRAZOLAM 0.25 MG TABLET PO PRN (21:09)
[2024-02-07] MEDS: MORPHINE 2 MG/ML SYR IV PRN (06:16)
[2024-02-07] MEDS ORDERED: HOME MED 1 EA UNK (Escitalopram Oxalate [Escitalopram Oxalate] 10 MG Tablet) PO SCH (09:00)
[2024-02-07] MEDS: ESCITALOPRAM 20 MG TAB PO SCH (10:44)
[2024-02-07] MEDS: LOSARTAN POTASSIUM 50 MG TABLET PO SCH (10:46)
[2024-02-07] MEDS: SPIRONOLACTONE 25 MG TABLET PO SCH (10:46)
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
[2024-02-08 08:24] LABS: Absolute Eosinophils 0.4 K/uL (0-0.5); Absolute Lymphocytes (CBC) 1.2 K/uL (0.7-4.9); Absolute Monocytes 1.1 K/uL (0.1-1.3); Absolute Neutrophil 7.8 K/uL (1.8-8.0); Basophils % 0.4 % (0-1.3); Eosinophils % 3.8 % (0-4.4); Hematocrit 32.7 % (39.6-49.0); Hemoglobin 10.7 g/dL (13.6-17.9); Lymphocytes % 11.5 % (15.3-44.8); MCH 29.3 pg (27.0-35.0); MCHC 32.8 g/dL (32.0-36.0); MCV 89.4 fL (80-100); MPV 9.5 fL (7.6-11.3); Neutrophils % 74.3 % (41.7-73.7); Platelets 197 thou/uL (152-406); RBC Red Blood Cell Count 3.66 M/uL (4.33-5.43); Red Cell Distribution Width 15.3 % (12.1-15.2)
[2024-02-08 08:44] LABS: Anion Gap 6.3 mEq/L (5.0-15.0); Potassium 3.3 mEq/L (3.5-5.1); Troponin High Sensitivity 20.1 pg/mL (<58.9)
[2024-02-08] MEDS: POTASSIUM CL SA 10 MEQ TAB PO ONE (09:28)
[2024-02-08] MEDS: VANCOMYCIN 2.25 GM in NA CHLORIDE 0.9% 500 ML IVPB SCH (10:33)
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
[2024-02-08] MEDS: AMPICILLIN/SULBACT 3 GM in NA CHLORIDE 0.9% 100 ML IVPB SCH (13:32)
[2024-02-08] MEDS: IPRATROPIUM BROM 0.5MG/2.5ML NEB PRN (14:58)
[2024-02-08] MEDS: PANTOPRAZOLE 40 MG INJ IVP SCH (20:14)
[2024-02-08] MEDS ORDERED: SODIUM CHLORIDE 0.9% 10ML INJ IV PRN (21:00)
[2024-02-08] MEDS: ALBUTEROL 2.5 MG/3 ML NEB SOL NEB PRN (21:00)
[2024-02-09] MEDS: FUROSEMIDE 20 MG/ 2ML VIAL ONE (09:38)
[2024-02-09] MEDS: FUROSEMIDE 20 MG/ 2ML VIAL IV ONE (09:44)
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
--- NOTE | 2024-02-09 11:54 | RAD REPORT ---
EXAMINATION: ONE VIEW CHEST XR CLINICAL INDICATION: Male, 73 years old.,Rule out pulmonary edema TECHNIQUE: Frontal chest projection is submitted. Examination is limited by patient positioning and t echnique. COMPARISON: 02/05/2024 FINDINGS: The lungs are mildly hypoinflated with interval improvement of aeration at the left base. Residual mi ld left costophrenic angle blunting could relate to atelectasis or residual trace effusion. No pneumothorax or sizable effusion. The heart is upper limit of normal in size. Mediastinal contours ar e unchanged with a prominent retrocardiac opacity containing gas most suggestive of a hiatal hernia. IMPRESSION: No acute intrathoracic abnormalities. Improving findings as above.
--- NOTE | 2024-02-09 16:38 | RAD REPORT ---
EXAM: US Extremity Nonvascular Limited HISTORY: Rule out abscess with cellulitis RIGHT COMPARISON: None TECHNIQUE: Sonographic grayscale and color flow imaging of the posterior right calf including the reg ion of interest as described by the patient. FINDINGS: Moderate subcutaneous edema. Echogenicity of the subcutaneous fat. Skin thickening. No appreciable fl uid collections. IMPRESSION: Findings suggestive of cellulitis. No appreciable fluid collections at this time.
[2024-02-10] MEDS: TRAZODONE 50 MG TABLET PO PRN (00:42)
[2024-02-10 04:38] LABS: Absolute Basophils 0.1 K/uL (0-0.5); Absolute Eosinophils 0.5 K/uL (0-0.5); Absolute Lymphocytes (CBC) 1.1 K/uL (0.7-4.9); Absolute Monocytes 1.4 K/uL (0.1-1.3); Absolute Neutrophil 7.8 K/uL (1.8-8.0); Basophils % 0.7 % (0-1.3); Eosinophils % 4.2 % (0-4.4); Hematocrit 30.4 % (39.6-49.0); Hemoglobin 10.1 g/dL (13.6-17.9); Lymphocytes % 10.1 % (15.3-44.8); MCH 29.1 pg (27.0-35.0); MCHC 33.4 g/dL (32.0-36.0); MCV 87.4 fL (80-100); MPV 8.9 fL (7.6-11.3); Monocytes % 12.7 % (3.3-12.3); Neutrophils % 72.3 % (41.7-73.7); Nucleated Red Blood Cells % 0.1 % (0-0); Platelets 219 thou/uL (152-406); RBC Red Blood Cell Count 3.48 M/uL (4.33-5.43); Red Cell Distribution Width 15.2 % (12.1-15.2)
[2024-02-10 05:10] LABS: Anion Gap 8.3 mEq/L (5.0-15.0); Potassium 3.3 mEq/L (3.5-5.1)
[2024-02-10] MEDS: POTASSIUM CL SA 10 MEQ TAB PO ONE (05:52)
[2024-02-10] MEDS: FUROSEMIDE 40 MG TABLET PO SCH (10:10)
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
--- NOTE | 2024-02-10 14:30 | RAD REPORT ---
EXAMINATION: US RIGHT LOWER EXTREMITY VENOUS DOPPLER CLINICAL INDICATION: has iliac stent / lymphedema RIGHT TECHNIQUE: Complete bilateral duplex sonography of the RIGHT lower extremity veins was performed. The examination included compression for vein patency, color Doppler imaging and flow augmentation in response to distal compression of the distal external iliac, common femoral, femoral, popliteal, tibi al, and great and small saphenous veins. COMPARISON: No prior exam. FINDINGS: Duplex sonography testing of the veins of the RIGHT lower extremity was performed. Color flow imaging shows all veins to be compressible with [id number] color filling. Pulsatile and phasic flow is present within all lower extremity deep and superficial veins examined. IMPRESSION: There is no deep vein or superficial vein thrombosis.
--- NOTE | 2024-02-10 14:35 | CON ---
Date of Consultation: 02/07/2024 Brief History Of Present Illness: The patient is a 73-year-old gentleman with a significant medical history of long-standing bilateral lower extremity lymphedema, who developed cellulitis in the right lower extremity which was significantly enlarging. He [facility] period of time and is now seeking a second opinion. The patient had some issues wi th worsening of his wound and his sister took him to [place] where he had an endovascular procedure w ith venous stent placed at that point, which ultimately resulted in significant symptomatic improveme nt of his right lower extremity cellulitis and swelling. The cellulitis did not resolve, however, it did improve significantly in both size and discoloration, but he continues to have some areas of wou nd on the heel/Achilles region as well as the mid calf region on the posterior aspect. The patient h as Parkinson's as well and has ataxia with frequent falls. Past Medical History: Significant for Parkinson's, insomnia, anxiety, restless legs syndrome, and to rn Achilles repair. In addition, he has had lymphedema of bilateral lower extremities and chronic wo und issues on the right lower extremity. Allergies: NO KNOWN DRUG ALLERGIES. Home Medications: Include carbidopa/levodopa, omega-3 fatty acids, Desyrel, Xanax, Eliquis, atorvast atin, escitalopram oxalate, losartan, Mirapex, and spironolactone. Allergies: NO KNOWN DRUG ALLERGIES. Past Surgical History: Includes the torn Achilles repair as well as a right iliac/femoral venous alona nt. Family History: Significant for heart disease in his father, peripheral arterial disease in his uncl e. He does have a previous tobacco history, but has stopped. Denies alcohol or recreational drug us e. Review of Systems: Ten-point review of systems other than HPI, denies. Physical Examination: General: He is awake, alert, and oriented. Psychiatric: He is appropriate. Conversive. He answers questions appropriately. He has somewhat s low mentation. Vital Signs: Blood pressure 111/57, pulse 68, respiratory rate 22, temperature 97.9, SpO2 98%. He d enies any pain during my exam. Psychiatric: He has some low-grade confusion, but with frequent redirection will answer questions ap propriately. HEENT: He is normocephalic. His sclerae are anicteric. Mucous membranes are moist. Oropharynx is clear. Neck: Supple without JVD. Chest: Normal expansion and excursion. Cardiovascular: Regular rate and rhythm. Pulmonary: Clear to auscultation bilaterally. Abdomen: Soft. Extremities: Focused examination of the extremities, he has swelling in bilateral lower extremities, right greater than left with some cellulitic changes. There is small excoriation of wounds on the r ight calf area in 2 regions and the Achilles area in the posterior mid calf, which are not very large , but do have some fibrinous buildup in the area. There is clear drainage from this at the time. Th e cellulitis is diffuse over the leg extending to almost the knee from the ankle area. Skin: Otherwise unremarkable. Laboratory Data: He had a laboratory exam, which reveals a white blood cell count of 13.9, hemoglobi n 10.4, hematocrit 33.5, platelet count was 167, neutrophils 90%. Sodium 137, potassium 2.4, chlorid e 106, carbon dioxide 21, BUN 22, creatinine 1.1, glucose is 92, total bilirubin 2.6, AST 78, ALT 24, alkaline phosphatase was 49. Troponin was 61.9 on initial check. He had a head cervical spine CT s can on 02/04, which was officially read as no evidence of acute intracranial abnormality and no evide nce of acute osseous abnormality of the cervical spine. Assessment And Plan: This is a 73-year-old male who comes in with signs and symptoms of a bilateral lymphedema with cellulitis of the right lower extremity. 1.IV fluid hydration. 2.Antibiotic coverage. 3.Topical antibiotic with Silvadene. 4.Local wound care with wraps, elevation and appropriate compression wrappings. 5.Elevation of the leg should be above the level of the heart. 6.Demarcation of the area of cellulitis with a marking pen to ensure no advancement occurs. If it d oes, we will change medications. 7.I have explained the risks, benefits, and alternatives of possible surgical debridement including but not limited to bleeding, infection, damage to surrounding tissue, need for further operative proc edures, heart attacks, blood clots, strokes, or other unforeseen complication of the perioperative pe riod. We do not anticipate surgical debridement at this occasion. However, during this admission, i t may be possible and as such, I have discussed the case with the family as well, who agreed to proce ed as indicated. GAIL/JOSÉ MIGUEL Voice ID: [id number] Report ID: [id number]
[2024-02-11 05:16] VITALS: O2SAT 93
[2024-02-11] MEDS: POTASSIUM CL SA 10 MEQ TAB PO SCH (09:00)
[2024-02-11] MEDS: POTASSIUM CL SA 10 MEQ TAB PO ONE (09:49)
--- NOTE | 2024-02-11 12:14 | EKG ---
Test Date: 2024-02-05 Test Time: 17:02:42 Operational Communication Chief: JAMES MEASUREMENT RESULTS: Intervals: Rate: 82 VA: 136 QRSD: 110 QT: 410 QTc: 479 [place]: P: 38 VA: 136 QRS: -3 T: 19 INTERPRETIVE STATEMENTS: Normal sinus rhythm Incomplete right bundle branch block Nonspecific ST and T wave abnormality Abnormal ECG Compared to ECG 04/03/2023 18:53:54 Incomplete right bundle-branch block now present ST (T wave) deviation now present Sinus bradycardia no longer present Electronically Signed On 02-11-24 12:06:20 ADVERTISING ACCOUNT MANAGER by Rigoberto Voss
--- NOTE | 2024-02-11 16:33 | P.DS ---
Admission Date: 02/05/24 Discharge Date: 02/11/24 Disposition: TRANSFER TO [facility] Discharge Condition: FAIR Reason for Admission: Cellulitis; AMS; h/o of Parkinson's disease Brief History of Present Illness: Patient is a 73-year-old gentleman who came to the hospital with cellulitis of the right lower extremity. Patient has a history of Parkinson's disease and he has been on carbo levodopa, but since leaving [facility] patient has not been taking his medications. Patient was ataxic and fell. EMS was called because patient's son was unable to get him up. Patient was brought into the ER for further evaluation. - Physical Exam General: Alert, In no apparent distress, Confused HEENT: Atraumatic, PERRLA, Mucous membr. moist/pink, EOMI, Sclerae nonicteric Neck: Supple, 2+ carotid pulse no bruit, No LAD, Without JVD or thyroid abnormality Respiratory: Clear to auscultation bilaterally, Normal air movement Cardiovascular: Regular rate/rhythm, Normal S1 S2 Gastrointestinal: Normal bowel sounds, Soft and benign, Non-distended, No tenderness Musculoskeletal: Swelling, Erythema, Tenderness Integumentary: Tenderness/swelling, Erythema Neurological: Normal speech, Sensation intact, Cranial nerves 3-12 intact, Abnormal gait, Abnormal strength Lymphatics: No axilla or inguinal lymphadenopathy Hospital Course: 73-year-old gentleman who came to the hospital with cellulitis of the right lower extremity. Patient has a history of Parkinson's disease and he has been on carbo levodopa, but since leaving [facility] patient has not been taking his medications. Patient was ataxic and fell. EMS was called because patient's son was unable to get him up. Patient was brought into the ER for further evaluation. He was noted to have cellulitis of the right lower extremity, lactic acidosis, leukocytosis, CKD. Was treated with IV antibiotics, wound care, mentation improved, tolerating diet, stable to discharge with IV antibiotics. He was seen by Dr. Burris, follow-up with surgery after discharge for wound care, right lower extremity cellulitis Wound care to the right lower extremity silver sulfadiazine twice daily wrap w kerlex and tameka wrap Plan to discharge with PICC line with IV antibiotic ceftriaxone 1 g daily for 10 days, weekly CBC, CMP, PICC line care per protocol Assessment Parkinson's, follow-up with neurology after discharge resume home carbidopa levodopa, mentation improved Nonpurulent cellulitis, right lower extremity improved SIRS, without shock, treated with IV antibiotic, resolved Metabolic encephalopathy, likely secondary to sepsis, supportive care, fall precaution, improved NSTEMI, LA type II, improved Acute kidney injury, treated with IV fluids, improved Bacteremia with group G Streptococcus, discharged home on Rocephin IV for 10 days Lactic acidosis treated with IV fluids, IV antibiotics, Continue home medicines as previously prescribed GOAL: Clear understanding of disease process INSTRUCTIONS: Physician Discharge Instructions: -Follow-up with surgery after disc -Follow-up with PCP in 1 to 2 weeks -Please call Dr. Madison at [phone] if any questions regarding hospital stay -Please call nursing station at [phone] if any nursing or medication questions -Return to the emergency room if symptoms worsen Diet: ADA, low sodium Activity: Fall precautions Vital Signs/Physical Exam: Temp Pulse Resp BP Pulse Ox 97.6 F 54 16 132/61 92 02/11/24 12:00 02/11/24 12:00 02/11/24 12:00 02/11/24 12:00 02/11/24 12:00 Other Physical/Emotional Findings: - Physical Exam. General: Not acutely ill looking, in no apparent distress,. HEENT: Normocephalic, atraumatic,. Neck: Supple, without JVD or goiter or thyroid mass. Respiratory: Normal breathing effort, clear breath sound bilaterally, no wheezing or crackle or rhonchi. Cardiovascular: Regular rate and rhythm, S1, S2 normal, no murmur no gallop. Gastrointestinal: Normal bowel sounds, nondistended, nontender, No ascites, , No masses, no hepatosplenomegaly. Musculoskeletal: No clubbing, No peripheral edema. Integumentary: the right lower extremity from right ankle to knee in elastic dressing, no crepitus, no tenderness no warmth, no more right pedal edema. Lymphatics: No axilla or cervical lymphadenopathy. Neurology; alert awake oriented x3, no focal neurologic deficit Laboratory Data at Discharge: WBC 10.80 thou/uL (4.3-10.9) 02/10/24 04:18 Hgb 10.1 g/dL (13.6-17.9) L 02/10/24 04:18 Hct 30.4 % (39.6-49.0) L 02/10/24 04:18 Plt Count 219 thou/uL (152-406) 02/10/24 04:18 PT 19.1 SECONDS (9.4-12.5) H 02/05/24 14:55 INR 1.73 02/05/24 14:55 APTT 37.1 SECONDS (24.3-36.9) H 02/05/24 14:55 Sodium 137 mEq/L (136-145) 02/10/24 04:18 Potassium 3.4 mEq/L (3.5-5.1) L 02/11/24 05:46 BUN 8 mg/dL (7-18) 02/10/24 04:18 Creatinine 0.77 mg/dL (0.70-1.30) 02/10/24 04:18 Glucose 115 mg/dL (74-106) H 02/10/24 04:18 Total Bilirubin 2.6 mg/dL (0.2-1.0) H 02/06/24 06:27 AST 78 U/L (15-37) H 02/06/24 06:27 ALT 24 U/L (16-61) 02/06/24 06:27 Alkaline Phosphatase 49 U/L (45-117) D 02/06/24 06:27 Home Medications: Carbidopa/Levodopa 25-100 [Sinemet 25-100*] 1 tab PO TID 04/04/23 Dudley-3 Fatty Acids [Dudley-3] 1 cap PO DAILY 04/04/23 Trazodone [Desyrel*] 0.5 tab PO BEDTIME PRN 04/04/23 ALPRAZolam [Xanax*] 0.25 mg PO BEDTIME PRN 02/06/24 Apixaban [Eliquis] 5 mg PO BID 02/06/24 Atorvastatin Calcium 10 mg PO BEDTIME 02/06/24 Escitalopram Oxalate 10 mg PO DAILY 02/06/24 Losartan Potassium 50 mg PO DAILY 02/06/24 Pramipexole [Mirapex] 0.5 mg PO TID 02/06/24 Spironolactone 25 mg PO DAILY 02/06/24 Albuterol Neb [Proventil 0.083% Neb Soln] 2.5 mg NEB [id number] PRN amp 02/11/24 Apixaban [Eliquis] 5 mg PO BID 02/11/24 Furosemide [Lasix*] 40 mg PO BIDL tab 02/11/24 Ipratropium Neb [Atrovent*] 0.5 mg NEB [id number] PRN amp 02/11/24 Losartan Potassium [Cozaar*] 50 mg PO DAILY 02/11/24 Potassium Oral Tab [Klor-Con 10 mEq Tab*] 20 meq PO DAILY tab 02/11/24 Physician Discharge Instructions: Established Home Health: [facility] [place] P:[phone] F:[phone] -DC IV and DC home -Follow-up with PCP in 1 to 2 weeks -Follow-up with Cardiology in 1 to 2 weeks -Please call Dr. Madison at [phone] if any questions regarding hospital stay -Please call nursing station at [phone] if any nursing or medication questions -Return to the emergency room if symptoms worsen Followup: Jere Burris MD [ACTIVE - CAN ADMIT] - Norma Nunes NP [Primary Care Provider] - Time spent managing pt's care (in minutes): 45
[2024-02-11 17:32] VITALS: BP 140/65; TEMP 97.5
--- NOTE | 2024-02-11 18:00 | RAD REPORT ---
EXAMINATION: ONE VIEW CHEST XR CLINICAL INDICATION: Male, 73 years old.,confirm PICC placement TECHNIQUE: Frontal chest projection is submitted. Examination is limited by patient positioning and t echnique. COMPARISON: 02/09/2024 FINDINGS: Progressive retrocardiac airspace opacity, may at least partially be related to presence of a hiatal hernia. Right arm PICC in satisfactory position with catheter tip at the superior cavoatrial junction. No pneumothorax or sizable effusion. Stable cardiomegaly and mild central interstitial pr ominence. Mediastinal contours are unremarkable. IMPRESSION: Progressive retrocardiac airspace opacity, may relate to progressive atelectasis or pneumonia. Satisfactory right arm PICC positioning.
[2024-02-11] MEDS ORDERED: Mupirocin NASAL 2 APPL/1 GM TUBE NAS SCH (21:00)
--- NOTE | 2024-02-12 11:15 | ECHO ---
HEIGHT: 5 ft 8 in WEIGHT: 207 lb 0 oz DATE OF STUDY: 02/11/[address]: RYAN Patterson MD 2-DIMENSIONAL: YES M.MODE: YES DOPPLER: YES COLOR FLOW: YES TDS: NO PORTABLE: YES DEFINITY: NO BUBBLE STUDY: NO DIAGNOSIS: STREPTOCOCCUS BACTEREMIA CARDIAC HISTORY: CATHERIZATION: SURGERY: PROSTHETIC VALVE: PACEMAKER: MEASUREMENTS (cm) DIASTOLIC (NORMALS) SYSTOLIC (NORMALS) IVSd 1.2 (0.6-1.2) LA Diam 3.5 (1.9-4.0) LVEF 55-60% LVIDd 4.3 (3.5-5.7) LVIDs 3.1 (2.0-3.5) %FS 28% LVPWd 1.2 (0.6-1.2) Ao Diam 3.2 (2.0-3.7) 2 DIMENSIONAL ASSESSMENT: RIGHT ATRIUM: NORMAL LEFT ATRIUM: NORMAL RIGHT VENTRICLE: NORMAL LEFT VENTRICLE: NORMAL TRICUSPID VALVE: MILD TRICUSPID REGURGITATION MITRAL VALVE: TRACE MITRAL REGURGITATION PULMONIC VALVE: TRACE PULMONARY REGURGITATION AORTIC VALVE: NORMAL PERICARDIAL EFFUSION: NONE AORTIC ROOT: NORMAL LEFT VENTRICULAR WALL MOTION: NORMAL. DOPPLER/COLOR FLOW: NORMAL. COMMENTS: 1. NORMAL LEFT VENTRICULAR SYSTOLIC FUNCTION. LEFT VENTRICULAR EJECTION FRACTION 55-60%. NORMAL WALL MOTION. 2. NORMAL DIASTOLIC FUNCTION. 3. NO VALVULAR VEGETATIONS SEEN. TECHNOLOGIST: MAGDALENA SANCHEZ
== END 2024-02-11 19:15 | DRG 871 ==
LOC: ER 14:26 → ERHOLD 17:14 → 4TH 17:45 → 2ND 02-08 18:22
PROVIDERS: ADMIT Hospitalist; ATTEND Hospitalist
PROC: 02HV33Z Insertion of Infusion Device into Superior Vena Cava, Percutaneous Approach (ICD-10-PCS; principal; 2024-02-11)
DX: A40.8 Other streptococcal sepsis (principal); G93.41 Metabolic encephalopathy; I21.A1 Myocardial infarction type 2; L03.115 Cellulitis of right lower limb; E87.20 Acidosis, unspecified; L97.929 Non-pressure chronic ulcer of unspecified part of left lower leg with unspecified severity; N17.9 Acute kidney failure, unspecified; R65.20 Severe sepsis without septic shock; I48.0 Paroxysmal atrial fibrillation; I12.9 Hypertensive chronic kidney disease with stage 1 through stage 4 chronic kidney disease, or unspecified chronic kidney disease; N18.9 Chronic kidney disease, unspecified; G25.81 Restless legs syndrome; G20.A1 Parkinson's disease without dyskinesia, without mention of fluctuations; R79.89 Other specified abnormal findings of blood chemistry; Z79.01 Long term (current) use of anticoagulants; Z86.718 Personal history of other venous thrombosis and embolism; Z91.199 Patient's noncompliance with other medical treatment and regimen due to unspecified reason; Z87.891 Personal history of nicotine dependence
CPT/HCPCS: 36415; 70450; 71045; 72125; 76882; 80048; 80053; 80202; 82550; 83605; 83880; 84132; 84484; 85025; 85610; 85730; 87040; 87077; 87186; 87205; 93005; 93306; 93971; 94640; 96365; 96367; 96368; 97116; 97161; 97530; 99285; A4216; J0295; J0692; J1940; J2270; J2470; J7030; J7040; J7050; J7613; J7644

== ENCOUNTER 2024-02-20 23:09 | Inpatient (IN) | payer OTHER, BC ==
[2024-02-20 23:53] LABS: Absolute Eosinophils 0.4 K/uL (0-0.5); Absolute Lymphocytes (CBC) 2.1 K/uL (0.7-4.9); Absolute Monocytes 0.8 K/uL (0.1-1.3); Basophils % 0.5 % (0-1.3); Eosinophils % 5.2 % (0-4.4); Hematocrit 35.9 % (39.6-49.0); Hemoglobin 11.8 g/dL (13.6-17.9); Lymphocytes % 25.3 % (15.3-44.8); MCH 28.6 pg (27.0-35.0); MCHC 32.8 g/dL (32.0-36.0); MCV 87.1 fL (80-100); MPV 9.8 fL (7.6-11.3); Monocytes % 9.7 % (3.3-12.3); Neutrophils % 59.3 % (41.7-73.7); Nucleated Red Blood Cells % 0.1 % (0-0); Platelets 298 thou/uL (152-406); RBC Red Blood Cell Count 4.12 M/uL (4.33-5.43); Red Cell Distribution Width 16.1 % (12.1-15.2)
[2024-02-20 23:54] LABS: PT Prothrombin Time 16.3 SECONDS (9.4-12.5); Protime INR 1.47
[2024-02-21 00:02] LABS: Specific Gravity 1.017 (1.005-1.030); Sqamous Epithelial <5 /HPF (None Seen); Urine Bacteria <20 /HPF (<20); Urine Bilirubin NEGATIVE (Negative); Urine Blood Negative (Negative); Urine Clarity Clear (Clear); Urine Color Light-Yellow (Yellow); Urine Culture Reflex Order NOT NEEDED; Urine Glucose NEGATIVE (Negative); Urine Ketones NEGATIVE (Negative); Urine Micro Reflex YN NO BILL MICROSCOPIC; Urine Mucus Slight /HPF (None Seen); Urine Nitrite NEGATIVE (Negative); Urine Protein TRACE (Negative); Urine RBC None Seen /HPF (None Seen); Urine Urobilinogen Normal (Normal); Urine WBC <5 /HPF (<5); Urine pH 5.5 (5.0-7.0)
[2024-02-21 00:12] LABS: AST/SGOT 26 U/L (15-37); Albumin 3.4 g/dL (3.4-5.0); Albumin/Globulin Ratio 0.8 (1.1-1.8); Alkaline Phosphatase 77 U/L (45-117); Anion Gap 12.3 mEq/L (5.0-15.0); BUN Blood Urea Nitrogen 59 mg/dL (7-18); Bicarbonate 23 mEq/L (21-32); Bilirubin Direct 0.2 mg/dL (0-0.2); Bilirubin Indirect, Calculated 0.5 mg/dL (0.2-0.8); Bilirubin Total 0.7 mg/dL (0.2-1.0); Globulin 4.5 g/dL (2.3-3.5); Glomerular Filtration Rate 25 ml/min (=/>90); Glucose Level 107 mg/dL (74-106); Magnesium 2.9 mg/dL (1.6-2.4); NT PRO-BNP 142 pg/mL (<125); Potassium 4.3 mEq/L (3.5-5.1); Protein, Total 7.9 g/dL (6.4-8.2); Sodium Level 133 mEq/L (136-145); Troponin High Sensitivity 7.4 pg/mL (<58.9)
[2024-02-21 00:13] LABS: ALT/SGPT < 14 U/L (16-61)
[2024-02-21] MEDS ORDERED: NA CHLORIDE 0.9% 500 ML ONE (00:14)
[2024-02-21] MEDS ORDERED: ZIPRASIDONE MESYLA 20 MG/VIAL IM ONE (01:19)
[2024-02-21] MEDS ORDERED: WATER FOR INJ,STERILE 10 ML ONE (01:19)
--- NOTE | 2024-02-21 02:58 | EDPHYS ---
Physician Documentation [facility] Name: Migue Jacob Jr Age: 73 yrs Sex: Male : 1950 Arrival Date: 02/20/2024 Time: 23:09 Bed 17 Private MD: ED Physician Kyler Patterson HPI: 02/19 23:18 This 73 yrs old Male presents to ER via Unassigned with complaints of sp4 reported hypotension at [place]. 02/20 02:45 Mr. Jacob presents with report of hypotension at the senior care. Patient was managed sp4 here 02/05/2024 through 02/11/2024 for cellulitis of right lower extremity, altered mental status, and history of Parkinson's disease. Patient on carbidopa levodopa. History of frequent falls. Patient was treated with IV antibiotics and wound care. He is mentation has improved. Patient was seen by general surgeon. Patient was advised to do wound care to right lower extremity with Silvadene cream and Kerlix and was discharged with PICC line to the right arm with IV antibiotic ceftriaxone 1 g daily for 10 days. Patient on presentation today has no complaints. Patient's medications include carbidopa levodopa 11188 omega-3 fatty acids, trazodone, alprazolam, apixaban 5 mg p.o. twice daily, atorvastatin 10 mg daily, escitalopram 10 mg daily, losartan 50 mg daily, Mirapex 0.5 mg p.o. 3 times daily, spironolactone 25 p.o. daily, albuterol nebulized as needed, furosemide 40 mg daily, Eliquis 5 mg p.o. twice daily, Atrovent 0.5 mg, losartan potassium 50 mg daily, oral potassium.. Historical: - Allergies: 02/19 23:49 No Known Allergies; cp4 - PMHx: 23:49 Deep vein thrombosis; Hypertensive disorder; Parkinson's disease; cp4 - Immunization history:: Adult Immunizations up to date. - Infectious Disease History:: Denies. - Social history:: Smoking status: Patient denies any tobacco usage or history of. - Family history:: not pertinent. ROS: 02/20 02:45 Constitutional: Negative for fever, chills, and weight loss, appears elderly and sp4 demented, has no specific complaints All other systems are negative, Exam: 02:45 Constitutional: This is a well developed, well nourished patient who is awake, alert, sp4 and in no acute distress. Head/Face: Normocephalic, atraumatic. Eyes: Pupils equal round and reactive to light, extra-ocular motions intact. Lids and lashes normal. Conjunctiva and sclera are not injected. Cornea within normal limits. Periorbital areas with no swelling, redness, or edema. ENT: Nares patent. No nasal discharge, no septal abnormalities noted. Tympanic membranes are normal and external auditory canals are clear. Oropharynx with no redness, swelling, or masses, exudates, or evidence of obstruction, uvula midline. Mucous membranes moist. Neck: Trachea midline, no thyromegaly or masses palpated, and no cervical lymphadenopathy. Supple, full range of motion without nuchal rigidity, or vertebral point tenderness. Chest/axilla: Normal chest wall appearance and motion. Nontender with no deformity. No lesions are appreciated. Cardiovascular: Regular rate and rhythm with a normal S1 and S2. No gallops, murmurs, or rubs. Normal PMI, no JVD. No pulse deficits. Respiratory: Lungs have equal breath sounds bilaterally, clear to auscultation and percussion. No rales, rhonchi or wheezes noted. No increased work of breathing, no retractions or nasal flaring. Abdomen/GI: Soft, with normal bowel sounds. No distension or tympany. No guarding or rebound. No evidence of tenderness throughout. Back: No spinal tenderness. No costovertebral tenderness. Skin: Warm, dry with normal turgor. Normal color with no rashes, no lesions, and no evidence of cellulitis. MS/ Extremity: Pulses equal, no cyanosis. Neurovascular intact. Full, normal range of motion. Positive right lower extremity redness consistent with moderate cellulitis. Neuro: Awake and alert, GCS 15, oriented to person, positive for moderate dementia, positive for resting tremor, cranial nerves II-XII grossly intact. Motor strength 5/5 in all extremities. Sensory grossly intact. 02:45 ECG was reviewed by the Attending Physician. EKG at 2343 normal sinus rhythm rate 61, normal EKG Vital Signs: 02/19 23:17 BP 107 / 47; Pulse 59; Resp 18; Temp 98; Pulse Ox 97% ; Pain 0/10; cp4 02/20 00:23 BP 104 / 67; Pulse 68; Resp 18; Pulse Ox 98% ; cp4 01:28 BP 120 / 58; Pulse 58; Resp 18; Pulse Ox 97% ; cp4 02:24 BP 137 / 61; Pulse 59; Resp 18; Pulse Ox 97% ; cp4 03:52 BP 107 / 52; Pulse 53; Resp 18; Pulse Ox 97% ; cp4 04:55 BP 112 / 60; Pulse 55; Resp 18; Pulse Ox 97% ; cp4 02/19 23:17 Pain Scale: Adult cp4 [place] Coma Score: 02:45 Eye Response: spontaneous(4). Motor Response: obeys commands(6). Verbal Response: sp4 confused(4). Total: 14. MDM: 02/19 23:19 Medical Screening Exam initiated sp4 02/20 02:54 Differential Diagnosis altered mental status, sepsis, flu. sp4 02:54 Data reviewed: vital signs, nurses notes, EMS record, senior care records, old medical sp4 records, lab test result(s), EKG, radiologic studies, plain films. Consideration of Admission/Observation Patient was admitted/placed on observation. Escalation of care including admission/observation considered. Management of patient was discussed with the following: Hospitalist: Jordy BLACK . ED course: CLINICAL HISTORY: CHEST PAIN. COMPARISON: None. TECHNIQUE: Single viewAP chest radiograph(s). FINDINGS: Right PICC terminates in the distal SVC. No pulmonary infiltrate or edema identified. No pleural effusion. No pneumothorax. Nonenlarged cardiomediastinal silhouette. No significant osseous abnormality. IMPRESSION: No acute cardiopulmonary abnormality identified by radiograph. Well positioned right PICC. . ED course: Patient presents with report of hypotension at the senior care. Patient has a creatinine 2.6 markedly higher than his baseline. Will initiate admission for IV hydration for acute renal insufficiency and dehydration . 02:57 ED course: Patient developed moderate agitation and screaming while in the emergency sp4 department. Patient was given IM Geodon 20 mg for agitation. Agitation has improved . 02/19 23:19 Order name: Basic Metabolic Panel; Complete Time: 02:38 sp4 02/19 23:19 Order name: CBC with Diff; Complete Time: 02:38 sp4 02/19 23:19 Order name: LFT's; Complete Time: 02:38 sp4 02/19 23:19 Order name: Magnesium; Complete Time: 02:38 sp4 02/19 23:19 Order name: NT PRO-BNP; Complete Time: 02:38 sp4 02/19 23:19 Order name: PT-INR; Complete Time: 02:38 sp4 02/19 23:19 Order name: Troponin HS; Complete Time: 02:38 sp4 02/19 23:19 Order name: Urinalysis W/Microscopic; Complete Time: 02:38 sp4 02/20 03:23 Order name: Magnesium EDMS 02/20 03:23 Order name: Phosphorus EDMS 02/20 03:23 Order name: Urinalysis w/ reflexes EDMS 02/20 03:23 Order name: Basic Metabolic Panel EDMS 02/20 03:23 Order name: Basic Metabolic Panel EDMS 02/20 03:23 Order name: CBC with Automated Diff EDMS 02/20 03:23 Order name: CBC with Automated Diff EDMS 02/20 03:31 Order name: Lactate w/ 2H reflex if indic. EDMS 02/19 23:19 Order name: XRAY Chest (1 view) sp4 02/19 23:19 Order name: Cardiac monitoring; Complete Time: 23:39 sp4 02/19 23:19 Order name: EKG - Nurse/Tech; Complete Time: 23:39 sp4 02/19 23:19 Order name: IV Saline Lock; Complete Time: 23:39 sp4 02/19 23:19 Order name: Labs collected and sent; Complete Time: 23:39 sp4 02/19 23:19 Order name: O2 Per Protocol; Complete Time: 23:39 sp4 02/19 23:19 Order name: O2 Sat Monitoring; Complete Time: 23:39 sp4 EC/04 23:43 Rate is 61 beats/min. Rhythm is regular, Normal Sinus Rhythm. QRS [place] is Normal. [place] sp4 interval is normal. QRS interval is normal. QT interval is normal. No Q waves. T waves are Normal. No ST changes noted. Clinical impression: No evidence of ischemia. Interpreted by me. Reviewed by me. Administered Medications: 02/20 00:16 Drug: NS 0.9% IV 500 ml 500 ml IV at 1 bolus once; to be given as a bolus over 30 cp4 minutes Volume: 500 ml; Route: IV; Rate: 1 bolus; Site: right upper arm; 01:25 Follow up: Response: No adverse reaction; IV Status: Completed infusion cp4 01:25 Drug: Geodon IM 20 mg IM once Route: IM; Site: left deltoid; cp4 03:12 Follow up: Response: No adverse reaction cp4 03:12 Drug: NS 0.9% IV 500 ml 500 ml IV at 1 bolus once; to be given as a bolus over 30 cp4 minutes Volume: 500 ml; Route: IV; Rate: 1 bolus; Site: right upper arm; 03:53 Follow up: Response: No adverse reaction cp4 03:54 Follow up: IV Status: Completed infusion cp4 03:12 Drug: NS 0.9% IV 1000 ml IV at 125 ml once; to be given as a bolus over 60 minutes cp4 Route: IV; Rate: 125 ml; Site: right upper arm; 05:27 Follow up: IV Status: Infusion continued upon admission cp4 Disposition Summary: 02/21/24 02:57 Hospitalization Ordered Notes: Hospitalization Status: Inpatient Admission sp4 Provider: Prince Jordy sp4 Location: Telemetry/[facility] (Inpatient) sp4 Condition: Stable sp4 Problem: new sp4 Symptoms: have improved sp4 Bed/Room Type: Standard sp4 Room Assignment: 224(02/21/24 03:55) lg3 Diagnosis - Acute on chronic renal insufficiency, moderate dehydration, right lower extremity sp4 cellulitis, agitation requiring sedation Forms: - Medication Reconciliation Form sp4 - SBAR form sp4 - Leadership Thank You Letter sp4 Signatures: Dispatcher [employer] Esther Velez RN RN lg3 Kyler Patterson MD MD sp4 Mariah Coronel 4 Corrections: (The following items were deleted from the chart) 02/19 23:19 23:19 BASIC METABOLIC PANEL+C.LAB.BRZ ordered. EDMS EDMS 23:19 23:19 CBC+H.LAB.BRZ ordered. EDMS EDMS 23:19 23:19 HEPATIC FUNCTION+C.LAB.BRZ ordered. EDMS EDMS 23:19 23:19 MAGNESIUM+C.LAB.BRZ ordered. EDMS EDMS 23:19 23:19 PROBNP+C.LAB.BRZ ordered. EDMS EDMS 23:19 23:19 PROTIME (+INR)+COAG.LAB.BRZ ordered. EDMS EDMS : 23:19 Troponin High Sensitivity+C.LAB.BRZ ordered. EDMS EDMS 23:19 Chest Single View+RAD.RAD.BRZ ordered. EDMS EDMS : 23:20 Urinalysis W/Microscopic+U.LAB.BRZ ordered. EDMS EDMS 02/20 03:55 02:57 sp4 lg3
--- NOTE | 2024-02-21 02:58 | ER ---
Nurse's Notes [facility] Name: Migue Jacob Jr Age: 73 yrs Sex: Male : 1950 Arrival Date: 02/20/2024 Time: 23:09 Bed 17 Private MD: Diagnosis: Acute on chronic renal insufficiency, moderate dehydration, right lower extremity cellulitis, agitation requiring sedation Presentation: 02/19 23:17 Chief complaint: EMS states: hypotension. Patient reports headache. No other symptoms cp4 reported. 23:17 Coronavirus screen: Client denies travel out of the [place] in the last 14 days. At this cp4 time, the client does not indicate any symptoms associated with coronavirus-19. Ebola Screen: Patient negative for fever greater than or equal to 101.5 degrees Fahrenheit, and additional compatible Ebola Virus Disease symptoms Patient denies exposure to infectious person. Patient denies travel to an Ebola-affected area in the 21 days before illness onset. No symptoms or risks identified at this time. Initial Sepsis Screen: Does the patient meet any 2 criteria? No. Patient's initial sepsis screen is negative. Does the patient have a suspected source of infection? No. Patient's initial sepsis screen is negative. Risk Assessment: Do you want to hurt yourself or someone else? Patient reports no desire to harm self or others. Onset of symptoms was February 20, 2024. 23:17 Method Of Arrival: EMS: [facility] cp4 23:17 Acuity: [place] 3 cp4 Triage Assessment: 23:49 General: Appears in no apparent distress. comfortable, Behavior is calm, cooperative, cp4 appropriate for age. Pain: Complains of pain in head. EENT: No signs and/or symptoms were reported regarding the EENT system. Neuro: Level of Consciousness is awake, alert, obeys commands, Oriented to person, place, time, situation. Cardiovascular: Patient's skin is warm and dry. Respiratory: Airway is patent Respiratory effort is even, unlabored. GI: No signs and/or symptoms were reported involving the gastrointestinal system. : No signs and/or symptoms were reported regarding the genitourinary system. Derm: No signs and/or symptoms reported regarding the dermatologic system. Musculoskeletal: No signs and/or symptoms reported regarding the musculoskeletal system. Historical: - Allergies: 23:49 No Known Allergies; cp4 - PMHx: 23:49 Deep vein thrombosis; Hypertensive disorder; Parkinson's disease; cp4 - Immunization history:: Adult Immunizations up to date. - Infectious Disease History:: Denies. - Social history:: Smoking status: Patient denies any tobacco usage or history of. - Family history:: not pertinent. Screenin:51 [facility] ED Fall Risk Assessment (Adult) History of falling in the last 3 months, cp4 including since admission No falls in past 3 months (0 pts) Confusion or Disorientation No (0 pts) Intoxicated or Sedated No (0 pts) Impaired Gait Yes (1 pt) Mobility Assist Device Used Yes (1 pt) Altered Elimination No (0 pt) Score/Fall Risk Level 0 - 2 = Low Risk Oriented to surroundings, Maintained a safe environment, Assessed \T\ reinforced patient's understanding of fall precautions, Hourly rounding (assess needs \T\ fall precautionary measures) done. Abuse screen: Denies threats or abuse. Nutritional screening: No deficits noted. Tuberculosis screening: No symptoms or risk factors identified. Assessment: 23:51 Reassessment: No changes from previously documented assessment. cp4 02/20 02:26 Reassessment: Patient appears in no apparent distress at this time. Patient and/or cp4 family updated on plan of care and expected duration. Pain level reassessed. 03:53 Reassessment: Patient appears in no apparent distress at this time. Patient and/or cp4 family updated on plan of care and expected duration. Pain level reassessed. 04:56 Reassessment: Patient appears in no apparent distress at this time. Patient and/or cp4 family updated on plan of care and expected duration. Pain level reassessed. Vital Signs: 02/19 23:17 BP 107 / 47; Pulse 59; Resp 18; Temp 98; Pulse Ox 97% ; Pain 0/10; cp4 02/20 00:23 BP 104 / 67; Pulse 68; Resp 18; Pulse Ox 98% ; cp4 01:28 BP 120 / 58; Pulse 58; Resp 18; Pulse Ox 97% ; cp4 02:24 BP 137 / 61; Pulse 59; Resp 18; Pulse Ox 97% ; cp4 03:52 BP 107 / 52; Pulse 53; Resp 18; Pulse Ox 97% ; cp4 04:55 BP 112 / 60; Pulse 55; Resp 18; Pulse Ox 97% ; cp4 02/19 23:17 Pain Scale: Adult cp4 Chelsea Coma Score: 02:45 Eye Response: spontaneous(4). Motor Response: obeys commands(6). Verbal Response: sp4 confused(4). Total: 14. ED Course: 02/19 23:17 Patient arrived in ED. lg3 23:18 Kyler Patterson MD is Attending Physician. sp4 23:21 Mariah Coronel is Primary Nurse. cp4 23:45 XRAY Chest (1 view) In Process Unspecified. EDMS 23:49 Triage completed. cp4 23:49 Arm band placed on right wrist. Patient placed in an exam room, on a stretcher. cp4 23:51 Bed in low position. Call light in reach. Side rails up X2. cp4 23:51 No provider procedures requiring assistance completed. Accessed PICC line. Clean \T\ dry. cp4 Dressing intact. Good blood return. Flushes easily. 02/20 02:56 Prince Spence MD is Hospitalizing Provider. sp4 04:56 Provided Education on: admission. cp4 04:56 Patient admitted, IV remains in place. cp4 Administered Medications: 00:16 Drug: NS 0.9% IV 500 ml 500 ml IV at 1 bolus once; to be given as a bolus over 30 cp4 minutes Volume: 500 ml; Route: IV; Rate: 1 bolus; Site: right upper arm; 01:25 Follow up: Response: No adverse reaction; IV Status: Completed infusion cp4 01:25 Drug: Geodon IM 20 mg IM once Route: IM; Site: left deltoid; cp4 03:12 Follow up: Response: No adverse reaction cp4 03:12 Drug: NS 0.9% IV 500 ml 500 ml IV at 1 bolus once; to be given as a bolus over 30 cp4 minutes Volume: 500 ml; Route: IV; Rate: 1 bolus; Site: right upper arm; 03:53 Follow up: Response: No adverse reaction cp4 03:54 Follow up: IV Status: Completed infusion cp4 03:12 Drug: NS 0.9% IV 1000 ml IV at 125 ml once; to be given as a bolus over 60 minutes cp4 Route: IV; Rate: 125 ml; Site: right upper arm; 05:27 Follow up: IV Status: Infusion continued upon admission cp4 Medication: 02/19 23:51 VIS not applicable for this client. cp4 Outcome: 02/20 02:57 Decision to Hospitalize by Provider. sp4 04:56 Admitted to Med/surg accompanied by nurse, via stretcher, with chart, cp4 04:56 Condition: stable 04:56 Instructed on the need for admit, 05:27 Patient left the ED. cp4 Signatures: Dispatcher [employer] EDEsther Pate RN RN [id number] Kyler Patterson MD MD sp4 Mariah Coronel cp4
[2024-02-21] MEDS ORDERED: NA CHLORIDE 0.9% 1,000 ML ONE (03:09)
[2024-02-21] MEDS ORDERED: ONDANSETRON 4 MG/2 ML VIAL IV PRN (03:20)
--- NOTE | 2024-02-21 03:28 | P.HP ---
Certification for Inpatient Patient admitted to: Inpatient With expected LOS: >2 Midnights Practitioner: I am a practitioner with admitting privileges, knowledge of patient current condition, hospital course, and medical plan of care. Services: Services provided to patient in accordance with Admission requirements found in Title 42 Section 412.3 of the Code of Federal Regulations Patient History Date of Service: 02/21/24 Reason for admission: gage, borderline blood pressure History of Present Illness: Patient is a 73-year-old male with a past medical history of dementia. He is currently a long term resident. He has a recent history of cellulitis for which she is on ceftriaxone via PICC line. He is brought in from the long term for evaluation of hypotension. Patient's systolic blood pressure was reportedly 107. He arrived in the ER normotensive. He was very agitated and required Geodon, which was given by the ER physician. I was unable to obtain review of system as patient was sedated during my evaluation Allergies No Known Allergies Allergy (Verified 04/04/23 05:00) Home Medications: Carbidopa/Levodopa 25-100 [Sinemet 25-100*] 1 tab PO TID 04/04/23 [place]-3 Fatty Acids [[place]-3] 1 cap PO DAILY 04/04/23 Trazodone [Desyrel*] 0.5 tab PO BEDTIME PRN 04/04/23 ALPRAZolam [Xanax*] 0.25 mg PO BEDTIME PRN 02/06/24 Apixaban [Eliquis] 5 mg PO BID 02/06/24 Atorvastatin Calcium 10 mg PO BEDTIME 02/06/24 Escitalopram Oxalate 10 mg PO DAILY 02/06/24 Losartan Potassium 50 mg PO DAILY 02/06/24 Pramipexole [Mirapex] 0.5 mg PO TID 02/06/24 Spironolactone 25 mg PO DAILY 02/06/24 Albuterol Neb [Proventil 0.083% Neb Soln] 2.5 mg NEB [id number] PRN amp 02/11/24 Apixaban [Eliquis] 5 mg PO BID 02/11/24 Ceftriaxone [Rocephin] 1,000 mg IV DAILY 10 Days #10 ml 02/11/24 Furosemide [Lasix*] 40 mg PO BIDL tab 02/11/24 Ipratropium Neb [Atrovent*] 0.5 mg NEB [id number] PRN amp 02/11/24 Losartan Potassium [Cozaar*] 50 mg PO DAILY 02/11/24 Potassium Oral Tab [Klor-Con 10 mEq Tab*] 20 meq PO DAILY tab 02/11/24 - Past Medical/Surgical History Diabetic: No -: Parkinsons -: insomnia -: anxiety -: Restless leg syndrome -: R torn achilles repair -: R lower extremity vein repair - Family History Father -: Heart disease uncle Notes: PAD - Social History Alcohol use: No CD- Drugs: No Caffeine use: Yes Physical Examination - Physical Exam General: Other (sedated but protecting his airway) HEENT: Atraumatic, Normocephalic, Other (Dry mucous membrane) Cardiovascular: Normal pulses, Regular rate/rhythm, Normal S1 S2, No murmurs (occasional bradycardia) - Studies Laboratory Data (last 24 hrs) 02/20/24 02/20/24 02/20/24 23:36 23:36 23:36 WBC 8.40 Hgb 11.8 L Hct 35.9 L Plt Count 298 PT 16.3 H INR 1.47 Sodium 133 L Potassium 4.3 BUN 59 H Creatinine 2.64 H Glucose 107 H Magnesium 2.9 H Total Bilirubin 0.7 AST 26 ALT < 14 L Alkaline Phosphatase 77 Assessment and Plan - Problems (Diagnosis) (1) CKD (chronic kidney disease) Current Visit: No Status: Acute (2) Cellulitis of leg, right Current Visit: No Status: Acute (3) Parkinsons disease Current Visit: No Status: Acute - Plan Assessment This is a 73-year-old male with a history of Parkinson disease brought in from the long term for evaluation of hypotension. Patient had borderline blood pressure in the ER. Was given oral repletion. Additional workup revealed evidence of acute kidney injury. He is to have a normal creatinine and now it is 2.64. Acute on chronic kidney disease Parkinson's disease Borderline blood pressure Occasional bradycardia Plan: Will admit inpatient with telemetry Normal saline infusion Repeat BMP tomorrow Antiemetics, DVT and GI prophylaxis Resume home Parkinson medications once reconciled Check magnesium and phosphorus - Advance Directives Does patient have a Living Will: Yes Does patient have a Durable POA for Healthcare: No
[2024-02-21] MEDS: PANTOPRAZOLE 40 MG INJ IVP SCH (03:29)
[2024-02-21] MEDS ORDERED: SODIUM CHLORIDE 0.9% 10ML INJ IV PRN (03:29)
[2024-02-21 04:56] LABS: Magnesium 2.8 mg/dL (1.6-2.4); Phosphorus 3.7 mg/dL (2.5-4.9)
[2024-02-21 05:54] VITALS: BMI 25.0
--- NOTE | 2024-02-21 06:02 | RAD REPORT ---
CLINICAL HISTORY: CHEST PAIN. COMPARISON: None. TECHNIQUE: Single view AP chest radiograph(s). FINDINGS: Right PICC terminates in the distal SVC. No pulmonary infiltrate or edema identified. No pleural ef fusion. No pneumothorax. Nonenlarged cardiomediastinal silhouette. No significant osseous abnormality. IMPRESSION: No acute cardiopulmonary abnormality identified by radiograph. Well positioned right PICC. Electronically signed by: Yovana Hartmann MD 02/21/2024 12:33 AM [facility] Due to temporary technical issues with the [employer] reporting system, reports are being apoorva d by the in-house radiologist without review as a courtesy to ensure prompt reporting the interpreting radiologist is fully responsible for the content of the report. Transcribed Date/Time: 02/21/2024 6:02 AM
[2024-02-21] MEDS: NA CHLORIDE 0.9% 1,000 ML IV SCH (06:13)
[2024-02-21 08:24] LABS: Anion Gap 10.1 mEq/L (5.0-15.0); Potassium 4.1 mEq/L (3.5-5.1)
[2024-02-21] MEDS: HEPARIN 5000 UNIT/ML 1 ML VIAL SQ SCH (08:58)
--- NOTE | 2024-02-21 13:02 | P.PN ---
Subjective Date of Service: 02/21/24 Chief Complaint: gage, borderline blood pressure Subjective: No new changes Review of Systems 10-point ROS is otherwise unremarkable General: Malaise Eyes: Unremarkable ENT: Unremarkable Respiratory: Unremarkable Cardiovascular: Other (low blood pressure) Gastrointestinal: Unremarkable Genitourinary: Unremarkable Musculoskeletal: Unremarkable Integumentary: Unremarkable Neurological: Other (malaise, decreased responsiveness) Physical Examination - Vital Signs Temperature: 97.5 F Blood Pressure: 132/58 Pulse: 51 Respirations: 16 Pulse Ox (%): 97 - Physical Exam General: Disheveled, Other (poorly responsive, looks dry) HEENT: Atraumatic, Normocephalic Neck: Supple Respiratory: Normal air movement Cardiovascular: No edema, Regular rate/rhythm Capillary refill: <2 Seconds Gastrointestinal: Normal bowel sounds Musculoskeletal: No clubbing, No swelling Integumentary: Other (dry lips and skin) Neurological: Abnormal tone, Abnormal affect Lymphatics: No axilla or inguinal lymphadenopathy External genitalia: Deferred Rectal: Deferred - Studies Laboratory Data (last 24 hrs) 02/20/24 02/20/24 02/20/24 23:36 23:36 23:36 WBC 8.40 Hgb 11.8 L Hct 35.9 L Plt Count 298 PT 16.3 H INR 1.47 Sodium 133 L Potassium 4.3 BUN 59 H Creatinine 2.64 H Glucose 107 H Magnesium 2.9 H Total Bilirubin 0.7 AST 26 ALT < 14 L Alkaline Phosphatase 77 Assessment And Plan - Plan - Problems (Diagnosis) (1) CKD (chronic kidney disease) Current Visit: No Status: Acute (2) Cellulitis of leg, right Current Visit: No Status: Acute (3) Parkinsons disease Current Visit: No Status: Acute - Plan Assessment This is a 73-year-old male with a history of Parkinson disease brought in from the long term for evaluation of hypotension. Patient had borderline blood pressure in the ER. Was given oral repletion. Additional workup revealed evidence of acute kidney injury. He had a normal creatinine and now it is 2.64. Acute on chronic kidney disease Parkinson's disease Borderline blood pressure Occasional bradycardia Plan: Will admit inpatient with telemetry Normal saline infusion Repeat BMP tomorrow Antiemetics, DVT and GI prophylaxis Resume home Parkinson medications once reconciled Check magnesium and phosphorus - Advance Directives Does patient have a Living Will: Yes Does patient have a Durable POA for Healthcare: No Discharge Plan: Senior Care Plan to discharge in: 48 Hours - Code Status/Comfort Care Code Status Assessed: Yes (full)
--- NOTE | 2024-02-21 16:14 | P.PN ---
Date of Service: 02/21/24 remains obtunded. VS stable
[2024-02-21] MEDS: CEFTRIAXONE 1,000 MG in NA CHLORIDE 0.9% 50 ML IVPB SCH (17:00)
[2024-02-21] MEDS: CARBIDOPA/LEVODOPA 25/250 TAB PO SCH (20:17)
[2024-02-21] MEDS: APIXABAN 5 MG TABLET PO SCH (20:17)
[2024-02-21] MEDS: ATORVASTATIN 10 MG TAB PO SCH (20:17)
[2024-02-21] MEDS: PRAMIPEXOLE 0.25 MG TAB PO SCH (20:17)
[2024-02-21] MEDS: CELECOXIB 100 MG CAPSULE PO SCH (23:43)
[2024-02-22] MEDS ORDERED: MORPHINE 2 MG/ML SYR IV PRN (03:01)
[2024-02-22] MEDS: HYDROCODONE/APAP 5/325 MG TAB PO PRN (03:37)
[2024-02-22] MEDS: NA CHLORIDE 0.9% 1,000 ML IV SCH (06:14)
[2024-02-22 07:03] LABS: Absolute Eosinophils 0.4 K/uL (0-0.5); Absolute Lymphocytes (CBC) 1.7 K/uL (0.7-4.9); Absolute Monocytes 0.7 K/uL (0.1-1.3); Absolute Neutrophil 4.6 K/uL (1.8-8.0); Basophils % 0.5 % (0-1.3); Eosinophils % 4.9 % (0-4.4); Hematocrit 36.3 % (39.6-49.0); Hemoglobin 11.7 g/dL (13.6-17.9); Lymphocytes % 22.8 % (15.3-44.8); MCH 28.5 pg (27.0-35.0); MCHC 32.2 g/dL (32.0-36.0); MCV 88.5 fL (80-100); Monocytes % 9.9 % (3.3-12.3); Neutrophils % 61.9 % (41.7-73.7); Nucleated Red Blood Cells % 0.1 % (0-0); Platelets 254 thou/uL (152-406); Red Cell Distribution Width 16.4 % (12.1-15.2)
[2024-02-22 07:21] LABS: Anion Gap 8.7 mEq/L (5.0-15.0); Potassium 4.7 mEq/L (3.5-5.1)
[2024-02-22] MEDS: ESCITALOPRAM 20 MG TAB PO SCH (07:51)
[2024-02-22] MEDS: MIDODRINE HCL 5 MG TABLET PO PRN (08:56)
[2024-02-22] MEDS ORDERED: LOSARTAN POTASSIUM 50 MG TABLET PO SCH ×2 (09:00)
[2024-02-22] MEDS ORDERED: SPIRONOLACTONE 25 MG TABLET PO SCH (09:00)
--- NOTE | 2024-02-22 16:46 | P.DS ---
Admission Date: 02/21/24 Discharge Date: 02/22/24 Disposition: ROUTINE DISCHARGE Discharge Condition: FAIR Reason for Admission: gage, borderline blood pressure Consultations: none Procedures: none Brief History of Present Illness: This is a 73-year-old male with a history of Parkinson disease brought in from the assisted for evaluation of hypotension. Patient had borderline blood pressure in the ER. Was given oral repletion. Additional workup revealed evidence of acute kidney injury. He was at [facility] finishing IV Ceftriaxone for right lower extremity cellulitis. Hospital Course: Mr. Jacob developed some pulmonary congestion after treatment for sepsis. He was sent to a SNF for continued IV antibiotics. Unfortunately he had a short- term course of Lasix but was not seen secondary to a weekend and then gi and then was seen by the facilities provider and the Lasix was discontinued. He was lethargic and had some hypotension so was sent back to the emergency department where he was found to have acute kidney injury and dehydration. He was gently hydrated and taken off his blood pressure medications. His kidney function is normalizing. He finished his last day of IV Rocephin. His PICC line was removed and he worked with PT. He has been in and out of the hospital for about 45 to 50 days, but is stable and worked well with PT. Mr. Jacob apparently lives alone right now but is planning to move to [facility] with his Daughter. With his present level of debility the family would like him transferred to [facility]. Vital Signs/Physical Exam: Temp Pulse Resp BP Pulse Ox 98.7 F 61 14 148/73 H 99 02/22/24 16:00 02/22/24 16:00 02/22/24 16:00 02/22/24 16:00 02/22/24 16:00 General: Alert, In no apparent distress, Other (slow movements and truncal weakness) HEENT: Atraumatic, Normocephalic Neck: Supple Respiratory: Normal air movement Cardiovascular: No edema, Regular rate/rhythm Capillary refill: <2 Seconds Gastrointestinal: Soft and benign, Other (eating breakfast on exam) Musculoskeletal: No clubbing, No contractures, No tenderness, Other (right lower ext cellulitis vastly improved. Antibiotics completed 02/21/24) Integumentary: No rashes, Other (some sacral irritation on arrival) Neurological: Sensation intact, Normal affect, Abnormal speech, Abnormal strength Lymphatics: No axilla or inguinal lymphadenopathy External genitalia: Deferred Rectal: Deferred Laboratory Data at Discharge: WBC 7.50 thou/uL (4.3-10.9) 02/22/24 06:36 Hgb 11.7 g/dL (13.6-17.9) L 02/22/24 06:36 Hct 36.3 % (39.6-49.0) L 02/22/24 06:36 Plt Count 254 thou/uL (152-406) 02/22/24 06:36 PT 16.3 SECONDS (9.4-12.5) H 02/20/24 23:36 INR 1.47 02/20/24 23:36 Sodium 138 mEq/L (136-145) 02/22/24 06:36 Potassium 4.7 mEq/L (3.5-5.1) D 02/22/24 06:36 BUN 37 mg/dL (7-18) H 02/22/24 06:36 Creatinine 1.49 mg/dL (0.70-1.30) H 02/22/24 06:36 Glucose 132 mg/dL (74-106) H 02/22/24 06:36 Phosphorus 3.7 mg/dL (2.5-4.9) 02/21/24 04:20 Magnesium 2.8 mg/dL (1.6-2.4) H 02/21/24 04:20 Total Bilirubin 0.7 mg/dL (0.2-1.0) 02/20/24 23:36 AST 26 U/L (15-37) 02/20/24 23:36 ALT < 14 U/L (16-61) L 02/20/24 23:36 Alkaline Phosphatase 77 U/L (45-117) 02/20/24 23:36 Home Medications: Carbidopa/Levodopa 25-100 [Sinemet 25-100*] 1 tab PO TID 04/04/23 [place]-3 Fatty Acids [[place]-3] 1 cap PO DAILY 04/04/23 Trazodone [Desyrel*] 0.5 tab PO BEDTIME PRN 04/04/23 ALPRAZolam [Xanax*] 0.25 mg PO BEDTIME PRN 02/06/24 Apixaban [Eliquis] 5 mg PO BID 02/06/24 Atorvastatin Calcium 10 mg PO BEDTIME 02/06/24 Escitalopram Oxalate 10 mg PO DAILY 02/06/24 Pramipexole [Mirapex] 0.5 mg PO TID 02/06/24 Spironolactone 25 mg PO DAILY 02/06/24 Albuterol Neb [Proventil 0.083% Neb Soln] 2.5 mg NEB [id number] PRN amp 02/11/24 Apixaban [Eliquis] 5 mg PO BID 02/11/24 Furosemide [Lasix*] 40 mg PO BIDL tab 02/11/24 Ipratropium Neb [Atrovent*] 0.5 mg NEB [id number] PRN amp 02/11/24 Losartan Potassium [Cozaar*] 50 mg PO DAILY 02/11/24 Potassium Oral Tab [Klor-Con 10 mEq Tab*] 20 meq PO DAILY tab 02/11/24 Atorvastatin Calcium [Lipitor] 10 mg PO BEDTIME 02/21/24 Diet: Regular Activity: Fall precautions Followup: Jatinder Man MD [Primary Care Provider] - Rolo Seo MD [ACTIVE - CAN ADMIT] -
--- NOTE | 2024-02-22 17:13 | P.PN ---
Date of Service: 02/22/24 Subjective Date of Service: 02/22/24 Chief Complaint: gage, borderline blood pressure Subjective: improving, eating breakfast, talking with his Brother, Gt. Pt c/o left shoulder pain Review of Systems 10-point ROS is otherwise unremarkable General: unremarkable Eyes: Unremarkable ENT: Unremarkable Respiratory: Unremarkable Cardiovascular: Other (low blood pressure) Gastrointestinal: Unremarkable Genitourinary: Unremarkable Musculoskeletal: Unremarkable Integumentary: Unremarkable Neurological: Other, slow movements and speech Physical Examination - Vital Signs reviewed, blood pressure stable - Physical Exam General: Awake today, eating breakfast. HEENT: Atraumatic, Normocephalic Neck: Supple Respiratory: Normal air movement Cardiovascular: No edema, Regular rate/rhythm Capillary refill: <2 Seconds Gastrointestinal: Normal bowel sounds Musculoskeletal: No clubbing, No swelling Integumentary: less dry, turgor improved Neurological: Abnormal tone, Abnormal affect Lymphatics: No axilla or inguinal lymphadenopathy External genitalia: Deferred Rectal: Deferred - Studies Laboratory Data (last 24 hrs) 02/20/24 02/20/24 02/20/24 23:36 23:36 23:36 WBC 8.40 Hgb 11.8 L Hct 35.9 L Plt Count 298 PT 16.3 H INR 1.47 Sodium 133 L Potassium 4.3 BUN 59 H Creatinine 2.64 H Glucose 107 H Magnesium 2.9 H Total Bilirubin 0.7 AST 26 ALT < 14 L Alkaline Phosphatase 77 Assessment And Plan - Plan - Problems (Diagnosis) (1) CKD (chronic kidney disease) Current Visit: No Status: Acute (2) Cellulitis of leg, right Current Visit: No Status: Acute (3) Parkinsons disease Current Visit: No Status: Acute - Plan Assessment This is a 73-year-old male with a history of Parkinson disease brought in from the assisted for evaluation of hypotension. Patient had borderline blood pressure in the ER. Was given oral repletion. Additional workup revealed evidence of acute kidney injury. He had a normal creatinine and now it is 2.64. Acute on chronic kidney disease Parkinson's disease Borderline blood pressure - improved Occasional bradycardia Plan: Will admit inpatient with telemetry Normal saline infusion completed Repeat BMP tomorrow - normalizing Antiemetics, DVT and GI prophylaxis Resume home Parkinson medications once reconciled - taking his Parkinson's medications and stopped his Losartan - Advance Directives Does patient have a Living Will: Yes Does patient have a Durable POA for Healthcare: No Discharge Plan: Skilled Nursing - requests transfer to [facility] Plan to discharge in: 24 Hours - Code Status/Comfort Care Code Status Assessed: Yes (full)
[2024-02-23] MEDS: ALPRAZOLAM 0.25 MG TABLET PO PRN (01:17)
[2024-02-23] MEDS: INSULIN REGULAR (HUMAN) 100 UNIT/ML SQ SCH (07:30)
[2024-02-23 12:57] VITALS: O2SAT 99
--- NOTE | 2024-02-23 16:35 | P.DS ---
Admission Date: 02/21/24 Discharge Date: 02/23/24 Disposition: TRANSFER TO INPATIENT REHAB Discharge Condition: FAIR Reason for Admission: job, borderline blood pressure Brief History of Present Illness: 73-year-old male with a past medical history of dementia. He is currently a [facility] resident. He has a recent history of cellulitis for which she is on ceftriaxone via PICC line. He is brought in from the [facility] for evaluation of hypotension. Patient's systolic blood pressure was reportedly 107. He arrived in the ER normotensive. He was very agitated and required Geodon. And as needed antianxiety meds for agitation - Physical Exam General: Awake oriented x 3, HEENT: Atraumatic, Normocephalic Neck: Supple Respiratory: Normal air movement Cardiovascular: No edema, Regular rate/rhythm Capillary refill: <2 Seconds Gastrointestinal: Normal bowel sounds Musculoskeletal: No clubbing, No swelling Integumentary: less dry, turgor improved Neurological: Abnormal tone, Abnormal affect, Parkinson's Hospital Course: 73-year-old male with a history of dementia, Parkinson disease brought in from the [facility] for evaluation of hypotension. He was noted to have cellulitis R) lower extremity. Labs revealed evidence of acute kidney injury. treated with IV fluids. IV antibiotics. Also was to have anxiety while inpatient, which treated with as needed antianxiety medications, while inpatient. Tolerating diet, stable to discharge to inpatient rehab for discharge, Assessment Cellulitis of leg, right-finished antibiotics while inpatient Parkinsons disease-resume home meds for Parkinson with JOB CKD (chronic kidney disease)-treated with IV fluids while inpatient, avoid nephrotoxic medication-hold losartan blood pressure medication after discharge to avoid JOB Anxiety, treated with as needed antianxiety medications Continue home medicines as previously prescribed GOAL: Clear understanding of disease process INSTRUCTIONS: Physician Discharge Instructions: -With neurology after discharge for Parkinson -Follow-up with PCP in 1 to 2 weeks -Please call if any questions regarding hospital stay -Please call nursing station at [phone] if any nursing or medication questions -Return to the emergency room if symptoms worsen Diet: ADA, low sodium Activity: Fall precautions Vital Signs/Physical Exam: Temp Pulse Resp BP Pulse Ox 97.9 F 59 16 112/64 99 02/23/24 12:00 02/23/24 12:00 02/23/24 12:00 02/23/24 12:00 02/23/24 12:00 Laboratory Data at Discharge: WBC 7.50 thou/uL (4.3-10.9) 02/22/24 06:36 Hgb 11.7 g/dL (13.6-17.9) L 02/22/24 06:36 Hct 36.3 % (39.6-49.0) L 02/22/24 06:36 Plt Count 254 thou/uL (152-406) 02/22/24 06:36 PT 16.3 SECONDS (9.4-12.5) H 02/20/24 23:36 INR 1.47 02/20/24 23:36 Sodium 138 mEq/L (136-145) 02/22/24 06:36 Potassium 4.7 mEq/L (3.5-5.1) D 02/22/24 06:36 BUN 37 mg/dL (7-18) H 02/22/24 06:36 Creatinine 1.49 mg/dL (0.70-1.30) H 02/22/24 06:36 Glucose 132 mg/dL (74-106) H 02/22/24 06:36 Phosphorus 3.7 mg/dL (2.5-4.9) 02/21/24 04:20 Magnesium 2.8 mg/dL (1.6-2.4) H 02/21/24 04:20 Total Bilirubin 0.7 mg/dL (0.2-1.0) 02/20/24 23:36 AST 26 U/L (15-37) 02/20/24 23:36 ALT < 14 U/L (16-61) L 02/20/24 23:36 Alkaline Phosphatase 77 U/L (45-117) 02/20/24 23:36 Home Medications: Carbidopa/Levodopa 25-100 [Sinemet 25-100*] 1 tab PO TID 04/04/23 [place]-3 Fatty Acids [[place]-3] 1 cap PO DAILY 04/04/23 Trazodone [Desyrel*] 0.5 tab PO BEDTIME PRN 04/04/23 ALPRAZolam [Xanax*] 0.25 mg PO BEDTIME PRN 02/06/24 Apixaban [Eliquis] 5 mg PO BID 02/06/24 Atorvastatin Calcium 10 mg PO BEDTIME 02/06/24 Escitalopram Oxalate 10 mg PO DAILY 02/06/24 Pramipexole [Mirapex*] 0.5 mg PO TID 02/06/24 Spironolactone 25 mg PO DAILY 02/06/24 Albuterol Neb [Proventil 0.083% Neb Soln] 2.5 mg NEB [id number] PRN amp 02/11/24 Apixaban [Eliquis] 5 mg PO BID 02/11/24 Ipratropium Neb [Atrovent*] 0.5 mg NEB [id number] PRN amp 02/11/24 Losartan Potassium [Cozaar*] 50 mg PO DAILY 02/11/24 Potassium Oral Tab [Klor-Con 10 mEq Tab*] 20 meq PO DAILY tab 02/11/24 Atorvastatin Calcium [Lipitor] 10 mg PO BEDTIME 02/21/24 Apixaban [Eliquis] 5 mg PO BID 02/23/24 Furosemide [Lasix] 40 mg PO DAILY 30 Days #30 tab 02/23/24 New Medications: Furosemide [Lasix] 40 mg PO DAILY 30 Days #30 tab Physician Discharge Instructions: 73-year-old male with a history of dementia, Parkinson disease brought in from the [facility] for evaluation of hypotension. He was noted to have cellulitis R) lower extremity. Labs revealed evidence of acute kidney injury. treated with IV fluids. IV antibiotics. Also was to have anxiety while inpatie nt, which treated with as needed antianxiety medications, while inpatient. Tolerating diet, stable to discharge to inpatient rehab for discharge, Assessment Cellulitis of leg, right-finished antibiotics while inpatient Parkinsons disease-resume home meds for Parkinson with JOB CKD (chronic kidney disease)-treated with IV fluids while inpatient, avoid nephrotoxic medication Anxiety, treated with as needed antianxiety medications Continue home medicines as previously prescribed GOAL: Clear understanding of disease process INSTRUCTIONS: Physician Discharge Instructions: -With neurology after discharge for Parkinson -Follow-up with PCP in 1 to 2 weeks -Please call if any questions regarding hospital stay -Please call nursing station at [phone] if any nursing or medication questions -Return to the emergency room if symptoms worsen Diet: ADA, low sodium Activity: Fall precautions Diet: Regular Activity: Fall precautions Followup: Rolo Seo MD [ACTIVE - CAN ADMIT] - Jatinder Man MD [Primary Care Provider] - Time spent managing pt's care (in minutes): 45
[2024-02-23 16:44] VITALS: BP 156/76; TEMP 97.6
[2024-02-23] MEDS: clonazePAM 0.5 MG TAB PO ONE (17:50)
[2024-02-23] MEDS ORDERED: MELATONIN 5 MG TABLET PO SCH (21:00)
--- NOTE | 2024-02-29 16:24 | EKG ---
Test Date: 2024-02-20 Test Time: 23:43:36 Chiropractic Neurologist: KRIS MEASUREMENT RESULTS: Intervals: Rate: 61 VT: 148 QRSD: 112 QT: 456 QTc: 459 [place]: P: 30 VT: 148 QRS: 12 T: 10 INTERPRETIVE STATEMENTS: Normal sinus rhythm Nonspecific ST and T wave abnormality Abnormal ECG Compared to ECG 02/05/2024 17:02:42 Incomplete right bundle-branch block no longer present ST (T wave) deviation still present Electronically Signed On 02-29-24 16:10:25 OUTDOOR STUDIES PROFESSOR by Rigoberto Voss
== END 2024-02-23 19:05 | DRG 683 ==
LOC: ER 23:09 → ERHOLD 02-21 03:20 → 2ND 02-21 04:36
PROVIDERS: ADMIT Internal Medicine; ATTEND Internal Medicine
DX: N17.9 Acute kidney failure, unspecified (principal); F03.911 Unspecified dementia, unspecified severity, with agitation; L03.115 Cellulitis of right lower limb; F03.94 Unspecified dementia, unspecified severity, with anxiety; G20.A1 Parkinson's disease without dyskinesia, without mention of fluctuations; E86.0 Dehydration; I12.9 Hypertensive chronic kidney disease with stage 1 through stage 4 chronic kidney disease, or unspecified chronic kidney disease; N18.9 Chronic kidney disease, unspecified; G25.81 Restless legs syndrome; R29.6 Repeated falls; R00.1 Bradycardia, unspecified; Z60.2 Problems related to living alone; Z79.01 Long term (current) use of anticoagulants; Z79.899 Other long term (current) drug therapy; Z86.718 Personal history of other venous thrombosis and embolism
CPT/HCPCS: 36415; 71045; 80048; 80076; 81001; 82947; 83605; 83735; 83880; 84100; 84484; 85025; 85610; 93005; 96360; 96361; 96372; 97116; 97161; 97530; 99285; J0696; J1644; J2470; J3486; J7030; J7040